=== PATIENT | female | born 1990 | race Caucasian/White ===

== ENCOUNTER → 2021-09-22 09:51 | Outpatient (CLI) | payer OTHER, SELFPAY ==
[2021-09-22 12:04] LABS: Add Manual Diff / Slide Review NO; Basophils Absolute Auto 0 /uL (0-100); Basophils Percent Auto 0.2 % (0-2); Eosinophils Absolute Auto 200 /uL (0-450); Eosinophils Percent Auto 1.7 % (2-4); Hematocrit 39.3 % (36-46); Hemoglobin 13.7 g/dL (12.0-16.0); Lymphocytes Absolute Auto 2000 /uL (1100-4500); Lymphocytes Percent Auto 21.4 % (25-40); Mean Corpuscular HGB Conc 34.9 % (30-36); Mean Corpuscular Hemoglobin 31.5 PG (26-34); Mean Corpuscular Volume 90.3 fL (80-100); Monocytes Absolute Auto 500 /uL (0-900); Monocytes Percent Auto 5.4 % (3-14); Neutrophils Absolute Auto 6700 /uL (1500-7000); Neutrophils Percent Auto 71.3 % (50-75); Platelet Count 189 X10^3/uL (150-400); Red Blood Cell Count 4.36 X10^6/uL (4.0-5.2); Red Cell Distribution Width 13.9 % (11.6-14.8); White Blood Cell Count 9.3 X10^3/uL (4.5-11.0)
[2021-09-22 12:35] LABS: Appearance Urine UA CLEAR; Bilirubin Urine UA NEGATIVE (NEGATIVE); Color Urine UA YELLOW; Glucose Urine UA NEGATIVE (Negative); Ketones Urine UA NEGATIVE (NEGATIVE); Leukocyte Esterase Urine UA NEGATIVE (NEGATIVE); Nitrite Urine UA NEGATIVE (Negative); Occult Blood Urine UA NEGATIVE (Negative); Protein Urine UA NEGATIVE (Negative); Specific Gravity Urine UA <=1.005 (1.000-1.035); Urobilinogen Urine UA 0.2 E.U./dL (0.2)
[2021-09-22 16:54] LABS: Hepatitis B Surface Antigen NEGATIVE s/c (NEGATIVE)
[2021-09-22 17:10] LABS: Hep C Virus Ab w/Reflex Quant NEGATIVE s/c (NEGATIVE)
[2021-09-22 17:16] LABS: HIV 1 & 2 Ab/Ag 4th Gen Combo NEGATIVE (NEGATIVE)
[2021-09-23 07:39] LABS: RPR Screen Non Reactive (Non Reactive)
[2021-09-23 10:42] LABS: Varicella IgG Antibody 2053 index (Immune >165)
== END ==
PROVIDERS: Referring Provider Obstetrics & Gynecology; Visit Provider Obstetrics & Gynecology
DX: Z34.81 Encounter for supervision of other normal pregnancy, first trimester (principal)
CPT/HCPCS: 36415; 80055; 81003; 86787; 86803; 86850; 86900; 86901; 87086; 87389

== ENCOUNTER → 2021-10-14 14:37 | Outpatient (ROUT) | payer OTHER, SELFPAY ==
[2021-10-14 16:29] LABS: Urine N gonorrhoeae NOT DETECTED
[2021-10-14 16:42] LABS: Urine Chlamydia NOT DETECTED
== END ==
PROVIDERS: Visit Provider Obstetrics & Gynecology
DX: Z34.81 Encounter for supervision of other normal pregnancy, first trimester (principal); Z3A.13 13 weeks gestation of pregnancy
CPT/HCPCS: 87491; 87591

== ENCOUNTER → 2021-11-27 09:59 | Outpatient (CLI) | payer OTHER, MEDICAID, SELFPAY ==
[2021-11-30 13:34] LABS: AFP Value 58.1 ng/mL (.); Gest Age on Col Date 19.9 weeks (.); Insulin Dep Diabetes No (.); OSBR Risk 1IN 10000 (.); Results Report (.); Test Results *Screen Negative* (.)
== END ==
PROVIDERS: Referring Provider Obstetrics & Gynecology; Visit Provider Obstetrics & Gynecology
DX: Z34.82 Encounter for supervision of other normal pregnancy, second trimester (principal); Z3A.17 17 weeks gestation of pregnancy
CPT/HCPCS: 36415; 82105

== ENCOUNTER → 2021-12-14 12:29 | Outpatient (CLI) | payer OTHER, MEDICAID, SELFPAY ==
--- NOTE | 2021-12-14 12:30 | DI.US.S_ITS ---
PROCEDURE: US OB >= 14 WEEKS FETUS INDICATIONS: ANATOMY OUTSIDE/PRIOR DATING DATA: Last menstrual period (LMP): July 11, 2021. LMP-based estimated date of delivery (REX): April 17, 2022. First dating scan (date and location): September 18, 2021. Estimated date of delivery (REX) from first dating scan: April 22, 2022. TECHNIQUE: Real-time scanning was performed of the fetus, with image documentation and biometric measurements. COMPARISON: None. FINDINGS: General: A single living intrauterine gestation is present. Presentation: Breech. Placenta: Placental position is fundal , without previa. Amniotic fluid index: 12.1 cm, normal range is 5-24 cm. Single deepest vertical pocket is 4.3 cm. heart rate: 145 beats per minute. Maternal cervical canal: 4.9 cm long. Normal lower limit is 2.5 cm. There is a right anterior lower uterine segment uterine fibroid which measures 5.3 x 3.8 x 5.4 cm. biometrics: Biparietal diameter: 5.4 cm, 22 weeks, 2 days Head circumference: 20.2 cm, 22 weeks, 2 days Abdominal circumference: 18.5 cm, 23 weeks, 2 days Femur length: 3.8 cm, 22 weeks, 1 day Clinically estimated gestational age: 21 weeks, 4 days Composite gestational age from present scan: 22 weeks, 4 days Estimated weight and percentile: 529 g, 94% Anatomic survey: Neuro: Ventricles are non-dilated at less than 10 mm. Cisterna magna is normal at 3-11 mm. Cerebellum is normal in size and morphology. Nuchal skin fold: Normal at less than 6 mm between 14-21 weeks gestational age. Face: Nose and lips, facial profile are normal. Spine: No evidence for spina bifida. Heart: 4-chambered heart is present, with normal ventricular outflow tracts. Diaphragm: Diaphragm is intact. Stomach: Left-sided stomach is present. Kidneys: No hydronephrosis. Normal is less than 5 mm in 2nd trimester, less than 7 mm in 3rd trimester. Cord: 3-vessel cord has orthotopic insertion. Bladder: Normal in size. Extremities: All 4 extremities identified. IMPRESSION: 1. Single live intrauterine gestation with a composite gestational age of 22 weeks, 4 days which is concordant with dates by initial scan. 2. Estimated weight percentile 94%. Developing macrosomia should be considered in the differential diagnosis. 3. No sonographic anatomic abnormalities. We strive to produce accurate, complete, and clear reports of imaging services. To assist us in improving patient care, this report was composed using standard report templates and voice recognition software. Therefore, it may contain abnormal punctuation, insertions and/or omissions. Occasional wrong-word or sound-alike substitutions may occur. Though we review the report and make efforts to correct it, we do recommend that the report be read carefully in proper context to recognize any text inaccuracies. Dictated by: Kristi Thompson M.D. on 12/14/2021 at 16:14 Approved by: Kristi Thompson M.D. on 12/14/2021 at 16:18
== END ==
PROVIDERS: Referring Provider Obstetrics & Gynecology; Visit Provider Obstetrics & Gynecology
DX: Z34.82 Encounter for supervision of other normal pregnancy, second trimester (principal); Z3A.22 22 weeks gestation of pregnancy
CPT/HCPCS: 76811

== ENCOUNTER → 2022-01-18 13:44 | Outpatient (CLI) | payer OTHER, MEDICAID, SELFPAY ==
[2022-01-18 15:01] LABS: Hematocrit 36.2 % (36-46); Hemoglobin 12.1 g/dL (12.0-16.0)
== END ==
PROVIDERS: Referring Provider Obstetrics & Gynecology; Visit Provider Obstetrics & Gynecology
DX: O26.899 Other specified pregnancy related conditions, unspecified trimester (principal); Z3A.26 26 weeks gestation of pregnancy; Z67.91 Unspecified blood type, Rh negative
CPT/HCPCS: 36415; 82105; 85014; 85018

== ENCOUNTER → 2022-01-22 14:48 | Outpatient (CLI) | payer OTHER, MEDICAID, SELFPAY | PROVIDERS: Referring Provider Obstetrics & Gynecology; Visit Provider Obstetrics & Gynecology | DX: O26.899 Other specified pregnancy related conditions, unspecified trimester (principal); Z3A.27 27 weeks gestation of pregnancy; Z67.91 Unspecified blood type, Rh negative | CPT/HCPCS: 36415; 86850 ==

== ENCOUNTER → 2022-03-25 15:43 | Outpatient (CLI) | payer OTHER, MEDICAID, SELFPAY ==
[2022-03-26 17:28] LABS: Strep Grp B PCR NEG for Grp B Strep
== END ==
PROVIDERS: Visit Provider Obstetrics & Gynecology
DX: Z34.83 Encounter for supervision of other normal pregnancy, third trimester (principal); Z3A.36 36 weeks gestation of pregnancy
CPT/HCPCS: 87653

== ENCOUNTER 2022-04-08 05:39 | Inpatient (IN) | payer OTHER, MEDICAID, SELFPAY ==
[2022-04-08] MEDS: LACTATED RINGERS 1,000 ML 999 ML IV (06:24)
[2022-04-08 06:25] VITALS: BP 104/60
[2022-04-08 06:36] LABS: Add Manual Diff / Slide Review NO; Basophils Absolute Auto 0 /uL (0-100); Basophils Percent Auto 0.2 % (0-2); Eosinophils Absolute Auto 100 /uL (0-450); Eosinophils Percent Auto 0.9 % (2-4); Hemoglobin 12.8 g/dL (12.0-16.0); Lymphocytes Absolute Auto 1900 /uL (1100-4500); Lymphocytes Percent Auto 19.3 % (25-40); Mean Corpuscular HGB Conc 33.8 % (30-36); Mean Corpuscular Volume 94.6 fL (80-100); Monocytes Absolute Auto 700 /uL (0-900); Monocytes Percent Auto 7.2 % (3-14); Neutrophils Absolute Auto 7300 /uL (1500-7000); Neutrophils Percent Auto 72.4 % (50-75); Platelet Count 138 X10^3/uL (150-400); Red Blood Cell Count 4.02 X10^6/uL (4.0-5.2); White Blood Cell Count 10.1 X10^3/uL (4.5-11.0)
[2022-04-08] MEDS: CITRIC ACID/SODIUM CITRATE 15 ML SOLUTION 30 ML PO (07:06)
[2022-04-08] MEDS: LACTATED RINGERS 1,000 ML 42 ML IV (07:34)
[2022-04-08 07:35] LABS: COVID19 -Nasal RAPID Negative (Negative)
--- NOTE | 2022-04-08 07:53 | PM.OBHP.IH.1 ---
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 Estimated Delivery Date Method Current WG Current Estimate 04/17/22 LMP (Certain) 38w 5d Other Estimates 04/22/22 Ultrasound #1 38w 0d Estimated Gestational Age (weeks): 39 : 2 care: good care, initiated at week # (9), number of visits (11) and pounds weight gain (41) Dating criteria OB: LMP confirmed by 1st trimester US Ultrasounds: normal 1st trimester US and normal mid trimester US Obstetrical complications: none Medical complications OB: none Indications Operative indications ( section): previous uterine surgery Preadmission Labs Last OB Lab Results: Blood Type A Negative 09/22/21 10:27 Antibody Screen Negative 01/22/22 15:00 Hematocrit 38.0 % (36-46) 04/08/22 06:18 Hemoglobin 12.8 g/dL (12.0-16.0) 04/08/22 06:18 Hepatitis B Surface Antigen Negative s/c (NEGATIVE) 09/22/21 10:27 Hepatitis C Antibody Negative s/c (NEGATIVE) 09/22/21 10:27 Rubella Antibody 65.0 IU/mL (>15) 09/22/21 10:27 Varicella-Zoster IgG Antibody 2053 index (Immune >165) 09/22/21 10:27 Group B Streptococcus (PCR) Neg for grp b strep 03/25/22 15:43 -: Chlamydia screen: negative, Gonorrhea screen: negative and Urine: negative -: PAP smear: Normal Genetic Screens: Cell-free DNA: Normal (normal female) and Alpha-fetoprotein: Normal External Labs -: Urine: negative Prior (ies) Past Pregnancies Del. Date GA/Weeks Labor Lgth Wt Sex Route Outcome Anesthesia Place Delv Breastfeed Preg Comp Name 06/29/20 38 48 6 lb 14 oz Male live - full term [facility], [place] Still as of 09/01 pre-eclampsia other Peter Delivery Date: 06/29/20 Last Updated by: Prisca Wise, RN anemia, tachycardia, SOB (worked up by cards and cleared) Evaluation Evaluation Baseline heart rate: 135 Variability: Moderate (11-25) monitor accelerations: Present Monitor Decelerations: Absent Contraction Frequency (minutes): 0 PFSH Medical History (Updated 02/05/22 @ 15:52 by Salud Borges MD) Carpal tunnel syndrome Chronic right hip pain Nonalcoholic fatty liver disease Seasonal allergies Shingles Vaginismus Surgical History (Updated 10/12/21 @ 05:29 by Salud Borges MD) H/O tympanostomy Previous section Family History (Updated 09/01/21 @ 09:40 by Prisca Wise RN) Family/Other Hyperthyroidism Mother Anxiety Hypertension Grandmother Uterine cancer Father Hyperlipidemia Grandmother Bipolar 1 disorder Family/Other Bipolar 1 disorder Grandmother Diabetes mellitus Grandfather Alcoholism Liver failure Social History marital status: number of children: 1 household members: spouse, family (MIL and FELISA) and children lives independently: Yes housing: house pets and animals: Yes (1 dog, livestock) education level: college ([employer] Degree) occupational status: employed current occupational exposures/hazards: No 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 history: 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, 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: No travel history: over 6 months ago seatbelt use: always helmet use: Yes water heater temp set < 120 deg: Yes working smoke detector in home: Yes fire extinguisher in home: Yes carbon monox detector in home: Yes firearms in home: Yes firearms unloaded and locked: Yes do you feel safe at home: Yes Smoking Status: Never smoker second hand exposure: No alcohol intake: former substance use type: does not use during the past year weight has: remained stable well-balanced diet: daily or most days daily servings fruits/ve or more times/day caffeine: Yes Type(s) of exercise: walking and other (active during the day) frequency: 5-6 times per week Meds Home Medications and Allergies Home Medications Medication Instructions Recorded Confirmed Type albuterol 90 mcg/actuation aerosol mcg inhalation Q6H PRN asthma 09/01/21 04/02/22 History inhaler cetirizine 10 mg capsule (Zyrtec) 10 mg PO DAILY PRN Allergies 09/01/21 04/08/22 History prenat.vits,jose manuel,vqp-fnnr-[id number] 1 tab PO DAILY 09/01/21 04/08/22 History triamcinolone acetonide 55 mcg 2 spray intranasal DAILY PRN 09/01/21 04/08/22 History nasal spray aerosol allergic symptoms double electric breast pump 1 ea topical .prn #1 ea 03/17/22 04/08/22 Rx Allergies Allergy/AdvReac Type Severity Reaction Status Date / Time No Known Allergies Allergy Verified 04/02/22 10:25 OB Exam Narrative Exam Narrative: Generally: Patient is sitting up in bed, no acute distress Lungs: Clear to auscultation bilaterally Cardiovascular: Regular rate and rhythm Fundal height: 39 cm Estimated weight: 7-1/2 lb Extremities: Trace edema Objective Labs 04/08/22 06:18 Labs: Laboratory Results - last 24 hr 04/08/22 04/08/22 06:13 06:18 WBC 10.1 RBC 4.02 Hgb 12.8 Hct 38.0 MCV 94.6 MCH 32.0 MCHC 33.8 RDW 14.0 Plt Count 138 L Neut % (Auto) 72.4 Lymph % (Auto) 19.3 L [place] % (Auto) 7.2 Eos % (Auto) 0.9 L Baso % (Auto) 0.2 Neut # (Auto) 7300 H Lymph # (Auto) 1900 [place] # (Auto) 700 Eos # (Auto) 100 Baso # (Auto) 0 SARS-CoV-2 (PCR) Negative Assessment and Plan Assessment and Plan Assessment and Plan narrative: Assessment: 31-year-old 2 para 1 at an estimated gestational age of 39 weeks gestation with a previous section Plan: Repeat low-transverse section Full preoperative exam done in the office on April 02, 2022 Time Spent with Patient Total time spent with greater than 50% in coordination of care (as documented) at patient's floor/unit and/or counseling patient:: 15-24 minutes
--- NOTE | 2022-04-08 07:58 | PM.PREOP ---
Pre-operative Note COVID-19 COVID-19 status: Negative Result date/Date tested (Pos, Neg/Pending): 04/08/22 Criteria for continued procedure: Non-surgical alternatives not available or appropriate per current SOC Interval Note History & Physical reviewed/Exam performed by Physician: Yes Changes to H&P: No H&P completed within 30 days and has changed as indicated here:: 04/08/22
[2022-04-08] MEDS: CEFAZOLIN 2 GM/100 ML PREMIX 100 ML IV (08:15)
--- NOTE | 2022-04-08 08:19 | SUR.OPER ---
Supine on Padded OR bed, head on pillow, safety belt at thigh, arms secured on padded arm boards at <90 degrees abduction. Bump under right buttock. Legs uncrossed with pillow under knees, gel pad to heels, tape over blanket to lower legs.
--- NOTE | 2022-04-08 08:45 | SUR.OPER ---
Baby girl Yumen born at 0834. Placenta delivered at 0836. Placenta and cord blood sent with L&D RN.
[2022-04-08 09:12] VITALS: BP 110/68; PULSE 71; RESP 11; TEMP 36.1; O2SAT 96
--- NOTE | 2022-04-08 09:17 | PM.OBCS.1 ---
Operative Date/Time/Diagnoses Date of procedure: 04/08/22 Time of procedure: 09:17 Pre-op diagnosis: Previous C section EGA 39 weeks Post-op diagnosis: same Procedure & Clinicians Procedure: Repeat Low transverse C section Same procedure as scheduled: Yes Indications: Previous section Estimated gestational age of 39 weeks Surgeon: Salud Avila Yes if Unassisted: No Procurement Consultant: Gerhard Gómez Anesthesia Type: Spinal (With Duramorph) Operative Notes Findings: Live female in ANGELY presentation Fascial adhesions Normal tubes and ovaries 6 cm mid body of the uterus subserosal fibroid Closure Type: primary Specimen(s): cord blood and placenta Intraoperative meds administered: Duramorph, Ketorolac and Pitocin Applied: Catheter (To continuous drainage) Estimated Blood Loss (mL): 200 Blood products transfused: none Procedure in detail: The patient was taken to the operating room where she was placed in the seated position. Spinal anesthesia with Duramorph was administered. The patient was then placed in the dorsal supine position with a leftward tilt. She was prepped and draped in the usual sterile fashion. A timeout was performed. After spinal analgesia was found to be adequate, a Pfannenstiel skin incision was made through the previous incision and carried through to the underlying layer fascia. The fascia was nicked in the midline, and the incision extended bilaterally with the Mckenna scissors. The superior aspect of the fascial incision was grasped with a Abbe clamps, elevated, and the underlying rectus muscles dissected off sharply and bluntly. Attention was then turned to the inferior aspect of this incision which in a similar fashion was grasped with a Abbe clamps, elevated, and the underlying rectus muscles dissected off sharply and bluntly. The rectus muscles were in the midline. The peritoneum was identified, grasped between 2 hemostats, and entered sharply with the Metzenbaum scissors. This incision was extended superiorly and inferiorly with good visualization of the bladder. The bladder blade was inserted. The vesicouterine peritoneum was identified, grasped with the pickup, and entered sharply with the Metzenbaum scissors. This incision was extended bilaterally, and the bladder flap was created digitally. The bladder blade was reinserted. The lower uterine segment was incised in a transverse fashion with the scalpel. Upon entering the amniotic sac there was moderate amount of clear amniotic fluid. The infant's head was delivered without difficulty. The nose and mouth were suctioned with bulb suction. The remainder of the body delivered without difficulty. The cord was double clamped and cut. The was handed off to waiting RN and RT. The placenta was delivered manually. The uterus was cleared of all clots and debris. The uterine incision was repaired with #1 chromic in a running interlocking fashion, and a second layer the same suture was used for an imbricating layer. Hemostasis was achieved. The tubes and ovaries were examined and were found to be normal. The gutters were cleared of all clots and debris. The bladder flap was reapproximated using 2-0 Vicryl in a running fashion. The parietal peritoneum was closed using 2-0 Vicryl in a running fashion. The fascia was reapproximated using 0 Vicryl in a running fashion. The subcutaneous layer was copiously irrigated with warm normal saline. 5 simple interrupted sutures of 3-0 Vicryl were placed to reapproximate the subcutaneous layer. The skin was closed with 4-0 Monocryl in a subcuticular fashion. Steri-Strips were placed. An Aquacel dressing was placed. The uterus was expressed of a small amount of old blood. Sponge, lap, and instrument counts were correct x-2. The patient tolerated the procedure well, and was taken to PACU in stable condition. Complications: none [place] Baby 1: Gender: Female Presentation: vertex Position: Right Occiput Anterior Placental Delivery Description: Expressed Cord Vessel Description: 3 Vessels and Clamped/Cut (After 1 minute) score (1 min): 8 score (5 min): 9 weight: 7 lb 15 oz Post-operative Condition: stable Disposition: PACU Aftercare: routine postop
[2022-04-08 09:18] VITALS: BP 117/74; PULSE 80; RESP 14; O2SAT 96
[2022-04-08 09:22] VITALS: BP 108/68; PULSE 77; RESP 14; O2SAT 95
[2022-04-08] MEDS: LANOLIN OINT 7 GM 1 APPLIC TOP (11:25)
[2022-04-08] MEDS: ACETAMINOPHEN 325 MG TABLET 650 MG PO ×3 (11:25→23:29)
[2022-04-08] MEDS: KETOROLAC 30 MG/ML VIAL IV ×2 (15:10→21:15)
[2022-04-09] MEDS: KETOROLAC 30 MG/ML VIAL IV (03:27)
[2022-04-09] MEDS: ACETAMINOPHEN 325 MG TABLET 650 MG PO ×2 (05:20→12:46)
[2022-04-09 05:51] LABS: Add Manual Diff / Slide Review NO; Basophils Absolute Auto 0 /uL (0-100); Basophils Percent Auto 0.3 % (0-2); Eosinophils Absolute Auto 100 /uL (0-450); Eosinophils Percent Auto 0.5 % (2-4); Hematocrit 33.4 % (36-46); Hemoglobin 11.3 g/dL (12.0-16.0); Lymphocytes Absolute Auto 2600 /uL (1100-4500); Lymphocytes Percent Auto 18.7 % (25-40); Mean Corpuscular HGB Conc 33.9 % (30-36); Mean Corpuscular Hemoglobin 31.7 PG (26-34); Mean Corpuscular Volume 93.4 fL (80-100); Monocytes Absolute Auto 900 /uL (0-900); Monocytes Percent Auto 6.7 % (3-14); Neutrophils Absolute Auto 10400 /uL (1500-7000); Neutrophils Percent Auto 73.8 % (50-75); Platelet Count 125 X10^3/uL (150-400); Red Blood Cell Count 3.57 X10^6/uL (4.0-5.2); Red Cell Distribution Width 13.9 % (11.6-14.8); White Blood Cell Count 14.1 X10^3/uL (4.5-11.0)
[2022-04-09] MEDS: PRENATAL VIT,CALC/IRON/FOLIC 1 TABLET 1 TAB PO (09:38)
[2022-04-09] MEDS: IBUPROFEN 600 MG TABLET PO (09:39)
[2022-04-09] MEDS: RHO(D) IMMUNE GLOBULIN 1,500 UNIT SYRINGE 1500 UNIT IM (09:39)
[2022-04-09] MEDS: DOCUSATE 100 MG CAPSULE PO (09:41)
[2022-04-09 10:03] VITALS: BP 109/72; PULSE 72; RESP 16; TEMP 36.5
[2022-04-09] MEDS: OXYCODONE IR 5 MG TABLET PO (12:46)
== END 2022-04-09 13:15 | disposition home or self-care (01) | DRG 788 ==
PROVIDERS: Admitting Provider Obstetrics & Gynecology; Referring Provider Obstetrics & Gynecology; Visit Provider Obstetrics & Gynecology
PROC: 10D00Z1 Extraction of Products of Conception, Low, Open Approach (ICD-10-PCS; CPT 59514; principal; 2022-04-08 07:45)
DX: O34.211 Maternal care for low transverse scar from previous cesarean delivery (principal); Z3A.39 39 weeks gestation of pregnancy; Z37.0 Single live birth; Z67.11 Type A blood, Rh negative; D25.2 Subserosal leiomyoma of uterus; O34.13 Maternal care for benign tumor of corpus uteri, third trimester; Z20.822 Contact with and (suspected) exposure to COVID-19
CPT/HCPCS: 36415; 59050; 59510; 59514; 85025; 85461; 86850; 86870; 86900; 86901; 87635; C9803; J0690; J1100; J1885; J2274; J2405; J2590; J2790; J3010

== ENCOUNTER 2022-05-02 11:56 | Emergency (ER) | payer OTHER, MEDICAID, SELFPAY ==
[2022-05-02 11:59] VITALS: BP 133/90; PULSE 70; RESP 18; TEMP 36.6; O2SAT 99
--- NOTE | 2022-05-02 12:54 | ED_ITS ---
HPI - Skin/Abscess/Foreign Bdy <Diamond Burns, [facility] - Last Filed: 05/02/22 13:50> General Chief complaint: Skin/Abscess/Foreign Body Stated complaint: Csection is bleeding and purulent, 04/08 Time Seen by Provider: 05/02/22 12:09 Source: patient Mode of arrival: Ambulatory Limitations: no limitations History of Present Illness HPI narrative: This is a 31-year-old female who is 3 weeks status post delivery a healthy and presents with concern about her site. She states that she has some discharge present from this yesterday after she cleaned it in the shower. States that her pannus is causing the tissue to fold right where her line is and her skin has been moist. She states that she thought she saw some pus or some white discharge come from the wound. She denies fever, chills, abdominal pain, has not had intercourse yet, endorses that she has been picking up her 20 lb toddler but has not had any increased pain, denies any pain anywhere and states that there is a couple spots of erythema across her scar. She denies any separation of wound tissue and denies any problems healing after her surgery. She also denies any deep abdominal tenderness. Denies any abnormal vaginal discharge, urinary frequency or urgency, nausea vomiting or new systemic symptoms. Related Data Home Medications Medication Instructions Recorded Confirmed albuterol 90 mcg/actuation aerosol inhalation PRN Dyspnea 09/01/21 04/02/22 inhaler cetirizine 10 mg capsule (Zyrtec) 10 mg PO DAILY PRN Allergies 09/01/21 04/08/22 prenat.vits,jose manuel,[id number] 1 tab PO DAILY 09/01/21 04/08/22 triamcinolone acetonide 55 mcg 2 spray intranasal DAILY PRN 09/01/21 04/08/22 nasal spray aerosol allergic symptoms Previous Rx's Medication Instructions Recorded double electric breast pump 1 ea topical .prn #1 ea 03/17/22 oxycodone 5 mg tablet 5 mg PO Q6H PRN pain #20 tabs 04/09/22 mupirocin 2 % topical ointment 1 applic topical DAILY #22 grams 05/02/22 nystatin 100,000 unit/gram topical 1 applic topical BID #60 grams 05/02/22 powder Allergies Allergy/AdvReac Type Severity Reaction Status Date / Time No Known Allergies Allergy Verified 04/02/22 10:25 Review of Systems <LUDY Pate - Last Filed: 05/02/22 13:50> Review of Systems ROS Unobtainable: All systems reviewed & are unremarkable except as noted in HPI and below Patient History <LUDY Pate - Last Filed: 05/02/22 13:50> Medical History Carpal tunnel syndrome Chronic right hip pain Nonalcoholic fatty liver disease Seasonal allergies Shingles Vaginismus Surgical History H/O tympanostomy Previous section Family History Family/Other Hyperthyroidism Mother Anxiety Hypertension Grandmother Uterine cancer Father Hyperlipidemia Grandmother Bipolar 1 disorder Family/Other Bipolar 1 disorder Grandmother Diabetes mellitus Grandfather Alcoholism Liver failure Social History marital status: number of children: 1 household members: spouse, family (MIL and FELISA) and children lives independently: Yes housing: house pets and animals: Yes (1 dog, livestock) education level: college ([employer] Degree) occupational status: employed current occupational exposures/hazards: No 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 history: 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, 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: No travel history: over 6 months ago seatbelt use: always helmet use: Yes water heater temp set < 120 deg: Yes working smoke detector in home: Yes fire extinguisher in home: Yes carbon monox detector in home: Yes firearms in home: Yes firearms unloaded and locked: Yes do you feel safe at home: Yes Smoking Status: Never smoker second hand exposure: No alcohol intake: former substance use type: does not use during the past year weight has: remained stable well-balanced diet: daily or most days daily servings fruits/ve or more times/day caffeine: Yes Type(s) of exercise: walking and other (active during the day) frequency: 5-6 times per week Smoking Status: Never smoker alcohol intake frequency: 0-2 drinks per day Substance Use Type: does not use Exam <LUDY Pate - Last Filed: 05/02/22 13:50> Narrative Exam Narrative: Reviewed vitals signs and nursing notes. General: cooperative, comfortable, in no acute distress, well groomed HEENT: symmetrical facial expressions, moist mucous membranes GI: abdomen soft, nontender to palpation, nondistended, abdomen is without masses tenderness, or area concerning for abscess. There is no tenderness along the incision, her pannus does over hang the incision and wound base is mildly moist. Two areas of erythema above and below the incision likely from skin rubbing on it self or moisture with the skin touching. There is no fluctuance, dehiscence or discharge from the wound. MSK: moves all extremities, neurovascularly intact, no weakness, normal tone Skin: brisk capillary refill, without pallor or erythema Neuro: normal speech and cognition, A&O x3, ambulatory, clear speech Psych: mental status is grossly normal, congruent mood, normal affect, pleasant and cooperative Initial Vital Signs Initial Vital Signs: Vital Signs Temperature 97.9 F 05/02/22 11:59 Pulse Rate 70 05/02/22 11:59 Respiratory Rate 18 05/02/22 11:59 Blood Pressure 133/90 05/02/22 11:59 Pulse Oximetry 99 05/02/22 11:59 Oxygen Delivery Method 05/02/22 11:59 <Marlen Umana DO - Last Filed: 05/11/22 03:15> Initial Vital Signs Initial Vital Signs: Vital Signs Temperature 97.9 F 05/02/22 11:59 Pulse Rate 70 05/02/22 11:59 Respiratory Rate 18 05/02/22 11:59 Blood Pressure 133/90 05/02/22 11:59 Pulse Oximetry 99 05/02/22 11:59 Oxygen Delivery Method 05/02/22 11:59 Course <LUDY Pate - Last Filed: 05/02/22 13:50> Orders Ordered: ED Orders 05/02/22 12:45 Urine Microscopic Stat 05/02/22 12:48 Urine Culture Stat Vital Signs Vital signs: Vital Signs - 8 hr 05/02/22 11:59 Temperature 97.9 F Pulse Rate 70 Respiratory Rate 18 Blood Pressure 133/90 Pulse Oximetry 99 Oxygen Delivery Method Room Air <Marlen Umana DO - Last Filed: 05/11/22 03:15> Orders Ordered: ED Orders 05/02/22 12:45 Urine Microscopic Stat 05/02/22 12:48 Urine Culture Stat Vital Signs Vital signs: Vital Signs - 8 hr 05/02/22 11:59 Temperature 97.9 F Pulse Rate 70 Respiratory Rate 18 Blood Pressure 133/90 Pulse Oximetry 99 Oxygen Delivery Method Room Air MDM - Skin/Abscess/Foreign Bdy <LUDY Pate - Last Filed: 05/02/22 13:50> Lab Data Labs: Lab Results 05/02/22 Range/Units 12:45 Urine RBC None seen (0-5/HPF) Urine WBC None seen (0-5/HPF) Urine Bacteria None seen (None) Micro UA Comment Microscopic normal Urine Dip Bedside Urine Bilirubin - Negative Bedside Urine Ketone - Negative Urine Specific [place] 1.015 Bedside Urine Occult Blood - Negative Bedside Urine pH 6 Bedside Urine Protein - Negative Bedside Urine Urobilinogen - Negative Bedside Urine Nitrite - Negative Bedside Urine Leukocytes - Negative Esterase MDM Narrative Medical decision making narrative: Chief Complaint: Wound complication Independent historian: patient Differential diagnoses include but are not limited to: Wound dehiscence, wound infection, abscess, tunneling wound, fungal infection, bacterial infection, contact dermatitis I have independently reviewed the patient's vital signs and nursing notes as well as prior records if available, and used shared decision making to develop plan care with patient. Plan: Wound appears well healed with good wound approximation and without concern for dehiscence or deep wound infection. She is nontender, very superficial areas of erythema likely related to moisture and intertrigo. Prescribed for her nystatin powder, encouraged her to fully dried the area after cleansing, apply the powder and I gave her Telfa dressings, paper tape, and ABD pads to absorb moisture in this area and to maximize airflow to this region. Prescribed also mupirocin ointment for superimposed bacterial infection if this happens, her UA is negative for bacteria, WBCs or RBCs. Prescribed for her cephalexin q.i.d. for skin infection any worsening of this over the next 1-2 days, she understands to come back to the emergency department if she has discharge coming from the wound, pain or fever chills. She is going to schedule follow-up with Dr. Borges since she did not have her 1 week post follow-up. Patient's symptoms improved over duration of stay with above-stated therapies. Social considerations that may affect disposition: none Questions are addressed and there is agreement with the plan and for follow-up. Patient is appropriate for outpatient management. MIPS: This encounter doesn't have any diagnosis' associated with MIPS criteria. <Marlen Umana, DO - Last Filed: 05/11/22 03:15> Lab Data Labs: Lab Results 05/02/22 Range/Units 12:45 Urine RBC None seen (0-5/HPF) Urine WBC None seen (0-5/HPF) Urine Bacteria None seen (None) Micro UA Comment Microscopic normal Urine Dip Bedside Urine Bilirubin - Negative Bedside Urine Ketone - Negative Urine Specific [place] 1.015 Bedside Urine Occult Blood - Negative Bedside Urine pH 6 Bedside Urine Protein - Negative Bedside Urine Urobilinogen - Negative Bedside Urine Nitrite - Negative Bedside Urine Leukocytes - Negative Esterase Discharge Plan Departure Patient Disposition: Home Clinical Impression: section wound complication, Intertriginous dermatitis associated with moisture Instructions: DI for Wound Infection Activity Restrictions/Additional Instructions: *You have been diagnosed with wound complication however it does not look deep ly infected or coming from a tunneling abscess today. This is likely related to moisture and I encourage you to thoroughly dry this after ring apply the nystatin powder and an absorbent nonstick dressing. If this clears it up, great, if it does not, please use topical mupirocin ointment of and continue with an absorbent dressing. If this has worsening, please start the antibiotic, if you develop a fever, chills, worsening pain, please come back to the emergency department. Thank you for trusting us with your care, I hope you feel better soon. No evidence of bladder infection today so follow up with Dr. Borges. *What to do: *Please continue to take your regular medications as directed. [x ] New medication prescriptions sent to your pharmacy: [ [facility]] [ ] New medication written as a paper prescription [ ] No new medications given *Please follow up with your primary care provider in 2-3 days, call for an appointment. Let them know you were seen in the Emergency Department and that we asked that you be seen for follow-up. We will electronically transmit a record of today's note if your PCP is in our system *If you do not have a primary care provider please contact [phone] to establish care with one of the [facility] primary care providers. *Return to Emergency Department if you should have any new, worsening, or concerning symptoms, such as [fever greater than 101F, chills, worsening pain, persistent vomiting or other bothersome symptoms]. Prescriptions: New nystatin 100,000 unit/gram powder 1 applic topical BID Qty: 60 0RF mupirocin 2 % ointment 1 applic topical DAILY Qty: 22 0RF No Action double electric breast pump 1 ea topical .prn Qty: 1 0RF Rx Instructions: With supplies prenat.vits,jose manuel,[id number] Tablet 1 tab PO DAILY Zyrtec 10 mg capsule 10 mg PO DAILY PRN (Reason: Allergies) triamcinolone acetonide 55 mcg aerosol,spray 2 spray intranasal DAILY PRN (Reason: allergic symptoms) Rx Instructions: administer into each nostril albuterol 90 mcg/actuation aerosol inhalation PRN (Reason: Dyspnea) oxycodone 5 mg tablet 5 mg PO Q6H PRN (Reason: pain) Qty: 20 0RF Referrals: Salud Borges MD [Physician] - As soon as possible Stand Alone Forms: Patient Portal/API <Marlen Umana DO - Last Filed: 05/11/22 03:15> Cosign ED Attending Coswillisature Attestation: I was immediately available in the department for consultation. Documentation has been reviewed.
[2022-05-02 12:56] LABS: Bacteria Urine None Seen; RBC Urine None Seen (0-5/HPF); Urine Comments Microscopic Normal; WBC Urine None Seen (0-5/HPF)
== END 2022-05-02 13:00 | disposition home or self-care (01) ==
PROVIDERS: Emergency Provider Nurse Practitioner Critical Care Medicine
DX: O90.9 Complication of the puerperium, unspecified (principal); L30.4 Erythema intertrigo
CPT/HCPCS: 81003; 81015; 87086; 99282

== ENCOUNTER 2022-08-23 09:20 | Day surgery (SDC) | payer OTHER, MEDICAID, SELFPAY ==
[2022-08-23 09:41] VITALS: BP 102/67; PULSE 60; RESP 18; TEMP 37.1; O2SAT 100; BMI 30.5
[2022-08-23] MEDS: LACTATED RINGERS 1,000 ML 100 ML IV (10:01)
--- NOTE | 2022-08-23 10:36 | P.HPOB_ITS ---
History of Present Illness History of Present Illness Reason for admission: other (dyspareunia) Narrative: Nisreen Caicedo is a 32 year old female 2 para 2 with dyspareunia and a tight hymen. She presents for hymenotomy. FOR[facility]LY [facility], [facility] Medical History Carpal tunnel syndrome Chronic right hip pain Nonalcoholic fatty liver disease Seasonal allergies Shingles Vaginismus Surgical History H/O tympanostomy Previous section Family History Family/Other Hyperthyroidism Mother Anxiety Hypertension Grandmother Uterine cancer Father Hyperlipidemia Grandmother Bipolar 1 disorder Family/Other Bipolar 1 disorder Grandmother Diabetes mellitus Grandfather Alcoholism Liver failure Social History marital status: number of children: 1 household members: spouse, family and children lives independently: Yes housing: house pets and animals: Yes (1 dog, livestock) education level: college ([employer] Degree) occupational status: employed current occupational exposures/hazards: No 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 history: 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, 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: No travel history: over 6 months ago seatbelt use: always helmet use: Yes water heater temp set < 120 deg: Yes working smoke detector in home: Yes fire extinguisher in home: Yes carbon monox detector in home: Yes firearms in home: Yes firearms unloaded and locked: Yes do you feel safe at home: Yes Smoking Status: Never smoker second hand exposure: No alcohol intake: never substance use type: does not use during the past year weight has: remained stable well-balanced diet: daily or most days daily servings fruits/ve or more times/day caffeine: Yes Type(s) of exercise: walking and other (active during the day) frequency: 5-6 times per week Meds Home Medications and Allergies Home Medications Medication Instructions Recorded Confirmed Type cetirizine 10 mg capsule (Zyrtec) 10 mg PO DAILY PRN Allergies 09/01/21 08/23/22 History prenat.vits,jose manuel,[id number] 1 tab PO DAILY 09/01/21 08/23/22 History triamcinolone acetonide 55 mcg 2 spray intranasal DAILY PRN 09/01/21 08/23/22 History nasal spray aerosol allergic symptoms Allergies Allergy/AdvReac Type Severity Reaction Status Date / Time No Known Allergies Allergy Verified 08/23/22 09:33 Exam Vital Signs (past 8 hours): - 08/23/22 09:41 Temperature 98.8 F Pulse Rate 60 Respiratory Rate 18 Blood Pressure 102/67 Pulse Oximetry 100 Oxygen Delivery Method Room Air Oxygen Delivery Method Room Air Narrative Exam Narrative: HEENT: No thyromegaly, no anterior cervical or supraclavicular lymphadenopathy. Lungs:Clear to auscultation bilaterally, no wheezes. Cardiovascular: Regular rate and rhythm, no murmurs, rubs, or gallops. Abdomen: Well-healed Pfannenstiel scars. No hepatosplenomegaly. No masses palpable. External genitalia: Normal Vagina: Tight hymen Cervix: Normal Bimanual exam: 6 Week size uterus. Mobile. Ext: No edema Assessment & Plan Assessment & Plan narrative: Assessment: 32-year-old 2 para 2 with dyspareunia and a tight hymen Plan: Hymenotomy The risks, benefits, and alternatives to the procedure were explained to the patient. The risks including bleeding and infection. She understands these risks and agrees to proceed. A full par Q was held and consent form was signed. Time Spent With Patient Time with patient: less than 30 minutes
--- NOTE | 2022-08-23 10:39 | PM.PREOP ---
Pre-operative Note COVID-19 Criteria for continued procedure: Non-surgical alternatives not available or appropriate per current SOC Interval Note History & Physical reviewed/Exam performed by Physician: Yes Changes to H&P: No H&P completed within 30 days and has changed as indicated here:: 08/23/22
--- NOTE | 2022-08-23 11:13 | SUR.OPER ---
Lithotomy on padded OR bed, head on pillow, arms secured on padded arm boards at <90 degrees abduction. Legs secured in padded yellow fins stirrups.
--- NOTE | 2022-08-23 11:29 | P.OP_ITS ---
Operative Date/Time/Diagnoses Date of procedure: 08/23/22 Time of procedure: 11:29 Pre-op diagnosis: Dyspareunia Tight hymen Post-op diagnosis: same Procedure & Clinicians Procedure: Procedures Operation Date: 08/23/22 10:45 Actual Procedure Side Surgeon p Hymenectomy Salud Borges MD Indications: Dyspareunia Tight hymen Surgeon: Salud Borges Anesthesia Type: General (LMA) and Local Operative Notes Findings: Very tight hymenal ring Closure Type: primary Specimen(s): none Estimated blood loss (mL): 5 Blood products transfused: none Procedure in detail: After informed consent was obtained, the patient was taken to the operating and was placed in the dorsal supine position. After adequate LMA general anesthesia was achieved, she was placed in the dorsal lithotomy position, and prepped and draped in sterile fashion. A time-out was performed. 6 cc 1% lidocaine with epinephrine were injected from the 5 to 7 o'clock position around the hymenal ring. Two incisions were made 1 at the 5 o'clock position and 1 at the 7 o' clock position. Pressure was held for hemostasis. Longitudinally the area was closed with 3-0 chromic in a running fashion. Hemostasis was achieved. At the beginning of the procedure there was a 2 cm diameter across the hymenal ring, and at the completion of the procedure there was 4 cm across the hymenal ring. Sponge, lap, and instrument counts were correct x2. The patient tolerated the procedure well, and was taken to PACU in stable condition. Complications: none Post-operative Condition: stable Disposition: PACU Plan for aftercare: Home after recovery
[2022-08-23 11:31] VITALS: BP 94/57; PULSE 70; RESP 11; TEMP 36.1; O2SAT 92
[2022-08-23] MEDS: LIDOCAINE 1% 20 ML, EPINEPHrine 0.2 MG INJ (11:32)
[2022-08-23 11:36] VITALS: BP 96/59; PULSE 78; RESP 17; O2SAT 94
[2022-08-23 11:40] VITALS: BP 98/59; PULSE 78; RESP 14; O2SAT 94
[2022-08-23 11:46] VITALS: BP 96/64; PULSE 62; RESP 16; TEMP 36.2; O2SAT 95
== END 2022-08-23 12:21 | disposition home or self-care (01) ==
PROVIDERS: Referring Provider Obstetrics & Gynecology; Visit Provider Obstetrics & Gynecology
PROC: (CPT 56700; principal; 2022-08-23 10:45)
DX: N89.6 Tight hymenal ring (principal); N94.10 Unspecified dyspareunia
CPT/HCPCS: 56700; J0171; J1100; J1885; J2405; J2704; J3010

== ENCOUNTER 2022-10-09 19:58 | Observation (INO) | payer OTHER, MEDICAID, SELFPAY ==
[2022-10-09 20:05] VITALS: BP 110/71; PULSE 64; RESP 16; TEMP 36.3; O2SAT 97; BMI 29.9
[2022-10-09 20:55] LABS: Add Manual Diff / Slide Review NO; Alanine Aminotransferase 17 IU/L (<35); Albumin 4.6 g/dL (3.5-5.0); Albumin Globulin Ratio 1.2 (1.0-2.8); Alkaline Phosphatase 82 U/L (38-126); Aspartate Aminotransferase 23 IU/L (14-36); BUN Creatinine Ratio 16.7 (6-22); Basophils Absolute Auto 0 /uL (0-100); Basophils Percent Auto 0.4 % (0-2); Bilirubin Total 0.3 mg/dL (0.2-1.3); Blood Urea Nitrogen 14 mg/dL (7-17); Carbon Dioxide 29 mmol/L (22-32); Chloride 99 mmol/L (98-107); Eosinophils Absolute Auto 200 /uL (0-450); Eosinophils Percent Auto 2.7 % (2-4); Estimated Glomerular Filt Rate > 60 mL/min (>60); Globulin 3.7 g/dL (1.7-4.1); Glucose 86 mg/dL (70-100); HEMOLYSIS 44 (0-50); Hematocrit 41.9 % (36-46); Hemoglobin 14.5 g/dL (12.0-16.0); Lipase 63 U/L (23-300); Lymphocytes Absolute Auto 3000 /uL (1100-4500); Lymphocytes Percent Auto 35.2 % (25-40); Mean Corpuscular HGB Conc 34.6 % (30-36); Mean Corpuscular Hemoglobin 31.2 PG (26-34); Mean Corpuscular Volume 90.2 fL (80-100); Monocytes Absolute Auto 600 /uL (0-900); Monocytes Percent Auto 6.8 % (3-14); Neutrophils Absolute Auto 4600 /uL (1500-7000); Neutrophils Percent Auto 54.9 % (50-75); Platelet Count 232 X10^3/uL (150-400); Potassium 3.8 mmol/L (3.4-5.1); Red Blood Cell Count 4.65 X10^6/uL (4.0-5.2); Red Cell Distribution Width 12.8 % (11.6-14.8); Sodium 137 mmol/L (137-145); Total Protein 8.3 g/dL (6.3-8.2); White Blood Cell Count 8.5 X10^3/uL (4.5-11.0)
[2022-10-09 22:03] VITALS: BP 105/67; PULSE 56; RESP 14; O2SAT 96
--- NOTE | 2022-10-09 22:23 | ED_ITS ---
HPI - Abdominal Pain General Chief Complaint: Abdominal Pain Stated Complaint: RLQ pain Time Seen by Provider: 10/09/22 22:22 Source: patient Mode of arrival: Ambulatory Limitations: no limitations History of Present Illness HPI narrative: This is a 32-year-old female six-month and cetirizine for daily a llergies. Patient states over the past day she woke up this morning with right lower quadrant pain that is localized just to the front. Does not radiate to her back. Does not really radiate to the other side. She does note there is a little bit discomfort when pushed on the left side over on the right. She states it sort of started more periumbilical and then moved to the right lower quadrant. No fevers or chills. She had some nausea this morning. No vomiting. No diarrhea constipation, she states she is been stooling regularly. No black or bloody stools. No dysuria, urgency or frequency. No vaginal bleeding or discharge. Patient is do not she is not had a menstrual cycle since her delivery 6 months ago. She is . She has not taken anything for pain today she defers anything additional. She she still has her appendix in place. x2 and hymen release are only reported surgeries. No known drug allergies. No tobacco, occasional alcohol, no illicit. Related Data Home Medications Medication Instructions Recorded Confirmed cetirizine 10 mg capsule (Zyrtec) 10 mg PO DAILY PRN Allergies 09/01/21 10/10/22 triamcinolone acetonide 55 mcg 2 spray intranasal DAILY PRN 09/01/21 10/10/22 nasal spray aerosol allergic symptoms Allergies Allergy/AdvReac Type Severity Reaction Status Date / Time No Known Allergies Allergy Verified 09/20/22 13:58 Review of Systems Review of Systems ROS Unobtainable: All systems reviewed & are unremarkable except as noted in HPI and below Patient History Medical History (Updated 10/10/22 @ 00:39 by Saji Lara RN) Asthma Carpal tunnel syndrome Chronic right hip pain Nonalcoholic fatty liver disease Seasonal allergies Shingles Vaginismus Surgical History H/O tympanostomy Previous section Family History Family/Other Hyperthyroidism Mother Anxiety Hypertension Grandmother Uterine cancer Father Hyperlipidemia Grandmother Bipolar 1 disorder Family/Other Bipolar 1 disorder Grandmother Diabetes mellitus Grandfather Alcoholism Liver failure Social History marital status: number of children: 1 household members: spouse, family and children lives independently: Yes housing: house pets and animals: Yes (1 dog, livestock) education level: college ([employer] Degree) occupational status: employed current occupational exposures/hazards: No 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 history: 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, 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: No travel history: over 6 months ago seatbelt use: always helmet use: Yes water heater temp set < 120 deg: Yes working smoke detector in home: Yes fire extinguisher in home: Yes carbon monox detector in home: Yes firearms in home: Yes firearms unloaded and locked: Yes do you feel safe at home: Yes Smoking Status: Never smoker second hand exposure: No alcohol intake: current substance use type: does not use during the past year weight has: remained stable well-balanced diet: daily or most days daily servings fruits/ve or more times/day caffeine: Yes Type(s) of exercise: walking and other (active during the day) frequency: 5-6 times per week Smoking Status: Never smoker alcohol intake frequency: 0-2 drinks per day Substance Use Type: does not use Exam Narrative Exam Narrative: GENERAL: Alert and oriented x three, female in mild distress. HEENT: Head normocephalic, atraumatic, EOMI, pupils reactive, face symmetric, moist mucous membranes NECK: Supple, full range of motion CARDIOVASCULAR: Regular rate and rhythm without murmurs, rubs or gallops. RESPIRATORY: Breath sounds equal bilaterally, no wheezes rales or rhonchi. ABDOMEN: Soft, mild right lower quadrant tenderness. Patient notes that palpation left she has discomfort on the right lower. Also notes rebound on the right lower quadrant. Normoactive bowel sounds all 4 quadrants. No guarding , no rigidity, no mass : No CVA tenderness EXTREMITIES: Normal range of motion, no clubbing or edema. Neurovascularly intact NEUROLOGICAL: Cranial nerves II through XII grossly intact. Moving all extremities SKIN: Warm, dry, no petechiae, no rashes or lesions. Initial Vital Signs Initial Vital Signs: Vital Signs Temperature 97.4 F L 10/09/22 20:05 Pulse Rate 64 10/09/22 20:05 Respiratory Rate 16 10/09/22 20:05 Blood Pressure 110/71 10/09/22 20:05 Pulse Oximetry 97 10/09/22 20:05 Oxygen Delivery Method Room Air 10/09/22 20:05 Course Orders Ordered: ED Orders 10/09/22 20:37 Complete Blood Count AUTO DIFF Stat Comprehensive Metabolic Panel Stat Lipase Stat 10/09/22 22:30 CT abdomen pelvis w con Stat Sodium Chloride (Normal Saline 0.9%) 1,000 mls @ 150 mls/hr IV CONT [facility] Last Admin: 10/09/22 23:50 Dose: 150 mls/hr Documented By: REAL Ondansetron HCl (Ondansetron 4 Mg Odt) 4 mg PO NOW PRN PRN Reason: Nausea And Vomiting Ondansetron HCl (Ondansetron 4 Mg/2 Ml Inj) 4 mg IV NOW PRN PRN Reason: Nausea And Vomiting Discontinued Medications Piperacillin Sod/Tazobactam (Sod 4.5 gm/ Sodium Chloride) 100 mls @ 200 mls/hr IV NOW ONE Stop: 10/09/22 23:41 Last Infusion: 10/10/22 00:45 Dose: 0 mls/hr Documented By: Admin: 10/09/22 23:50 Dose: 200 mls/hr Documented By: REAL Lactated Ringer's (Lactated Ringers) 1,000 mls @ 150 mls/hr IV CONT [facility] Vital Signs Vital signs: Vital Signs - 8 hr 10/09/22 20:05 10/09/22 22:03 Temperature 97.4 F L Pulse Rate 64 56 L Respiratory Rate 16 14 Blood Pressure 110/71 105/67 Pulse Oximetry 97 96 Oxygen Delivery Method Room Air Room Air MDM - Abdominal Pain Lab Data 10/09/22 20:37 10/09/22 20:37 Labs: Lab Results 10/09/22 10/09/22 Range/Units 20:37 20:37 WBC 8.5 (4.5-11.0) X10^3/uL RBC 4.65 (4.0-5.2) X10^6/uL Hgb 14.5 (12.0-16.0) g/dL Hct 41.9 (36-46) % MCV 90.2 (80-100) fL MCH 31.2 (26-34) PG MCHC 34.6 (30-36) % RDW 12.8 (11.6-14.8) % Plt Count 232 (150-400) X10^3/uL Neut % (Auto) 54.9 (50-75) % Lymph % (Auto) 35.2 (25-40) % [place] % (Auto) 6.8 (3-14) % Eos % (Auto) 2.7 (2-4) % Baso % (Auto) 0.4 (0-2) % Neut # (Auto) 4600 (4956-5158) /uL Lymph # (Auto) 3000 (6841-2033) /uL [place] # (Auto) 600 (0-900) /uL Eos # (Auto) 200 (0-450) /uL Baso # (Auto) 0 (0-100) /uL Sodium 137 (137-145) mmol/L Potassium 3.8 (3.4-5.1) mmol/L Chloride 99 (98-107) mmol/L Carbon Dioxide 29 (22-32) mmol/L BUN 14 (7-17) mg/dL Creatinine 0.84 (0.52-1.04) mg/dL Estimated GFR > 60 (>60) mL/min BUN/Creatinine Ratio 16.7 (6-22) Glucose 86 (70-100) mg/dL Calcium 9.0 (8.4-10.2) mg/dL Total Bilirubin 0.3 (0.2-1.3) mg/dL AST 23 (14-36) IU/L ALT 17 (<35) IU/L Alkaline Phosphatase 82 (38-126) U/L Total Protein 8.3 H (6.3-8.2) g/dL Albumin 4.6 (3.5-5.0) g/dL Globulin 3.7 (1.7-4.1) g/dL Albumin/Globulin Ratio 1.2 (1.0-2.8) Lipase 63 (23-300) U/L Point of care testing: Point of Care Testing Test Results Negative Urine Dip Bedside Urine Glucose Negative Bedside Urine Bilirubin - Negative Bedside Urine Ketone - Negative Urine Specific Issue 1.01 Bedside Urine Occult Blood - Negative Bedside Urine pH 7.0 Bedside Urine Protein - Negative Bedside Urine Urobilinogen - Negative Bedside Urine Nitrite - Negative Bedside Urine Leukocytes - Negative Esterase Imaging Data CT scan - abdomen/pelvis: Radiologist's Impression: [address] [address] [address] Scan Report Signed Patient: Nisreen Caicedo MR#: [id number] : 1990 Acct:[id number] Age/Sex: 32 / F Date of Service: 10/09/22 Loc: ED Accession Number: [id number] ?? Procedure: CT abdomen pelvis w con Ordering Provider: Alexandra Way D.O. PROCEDURE:? CT ABDOMEN PELVIS W CON ? INDICATIONS:? RLQ pain, 6 months ? TECHNIQUE:? After the administration of IV contrast, axial sections were acquired from the lung bases to the pubic symphysis.? Coronal and sagittal reformats were performed.? For radiation dose reduction, the following was used:? automated exposure control, adjustment of mA and/or kV according to patient size. ? COMPARISON:? None. ? FINDINGS:? Image quality:? Excellent.? ? Lung bases:? Unremarkable.? ? Heart:? No significant findings. ? ? ABDOMEN: Liver:? Liver is enlarged measuring 17.8 cm with steatosis. Gallbladder:? Unremarkable.? ? Biliary ducts:? Unremarkable.? ? Pancreas:? Unremarkable.? ? Spleen:? Unremarkable.? ? Adrenal Glands:? Unremarkable.? ? Kidneys and Ureters:? Unremarkable.? ? ? Stomach and Bowel:? Stomach, small bowel loops, and colon are nonobstructive.? The appendix is enlarged measuring 6 8 mm with inflammatory change.? No appendicoli ths.? No perforation.? Moderate colonic stool. Peritoneum:? No abnormal intraperitoneal fluid.? No free air.? ? Ventral Wall: ? No hernia.? Abdominal Nodes:? No retroperitoneal or mesenteric adenopathy by size criteria.? Vessels:? Aorta and inferior vena cava are normal in size.? ? PELVIS: Pelvic Organs:? Unremarkable.? ? Bladder:? Unremarkable.? ? Pelvic Nodes: No enlarged lymph nodes.? Miscellaneous: No inguinal hernias are seen. ? ? ? Bones:? Unremarkable.? IMPRESSION:? ? Enlarged appendix with inflammatory change most suggestive of appendicitis.? No perforation or appendicolith. ? The above findings were discussed with Dr. Alexandra Way on 10/09/2022 at 11:30 p.m.? ? Dictated by: Lida Burton M.D. on 10/09/2022 at 23:28 ? ? Approved by: Lida Burton M.D. on 10/09/2022 at 23:33?? MDM Narrative Medical decision making narrative: Is a 32-year-old female with right lower quadrant pain history started as perium bilical then moved to the right lower quadrant she is mildly tender on exam and notes that palpation of the left makes it hurt on the right and has little bit more rebound on the right than with palpation. Patient's defers anything for pain, she is afebrile, her labs including CBC, CMP, lipase do not show any acute changes. She has a negative test and point of care urine does not show any signs infection or hematuria. Symptoms are concerning for possible appendicitis. Discussed with patient ultrasound versus CT imaging. Did discuss that if we do not see appendix I would recommend CT. She elects to go forward with CT imaging. Patient is discussed options for pain management. That she can still continue to breastfeed after CT does not require pump and dump. CT imaging does show changes consistent with appendicitis. Spoke with Dr. Jenkins, NPO, Daron, plan for potential OR tomorrow with observation under Dr. Jenkins. Discussed with patient she is agreeable, she is still so contacted L and D for breast pump. Discussed she can continue to breastfeed with Zosyn, she has NS ordered at 150ml per hour. Discharge Plan Departure Patient Disposition: Admitted as Observation Clinical Impression: Acute appendicitis Admit Date/Time: 10/09/22 23:40 Admit Provider: Conor Jenkins
--- NOTE | 2022-10-09 22:30 | DI.CT.S_ITS ---
PROCEDURE: CT ABDOMEN PELVIS W CON INDICATIONS: RLQ pain, 6 months TECHNIQUE: After the administration of IV contrast, axial sections were acquired from the lung bases to the pubic symphysis. Coronal and sagittal reformats were performed. For radiation dose reduction, the following was used: automated exposure control, adjustment of mA and/or kV according to patient size. COMPARISON: None. FINDINGS: Image quality: Excellent. Lung bases: Unremarkable. Heart: No significant findings. ABDOMEN: Liver: Liver is enlarged measuring 17.8 cm with steatosis. Gallbladder: Unremarkable. Biliary ducts: Unremarkable. Pancreas: Unremarkable. Spleen: Unremarkable. Adrenal Glands: Unremarkable. Kidneys and Ureters: Unremarkable. Stomach and Bowel: Stomach, small bowel loops, and colon are nonobstructive. The appendix is enlarged measuring 6 8 mm with inflammatory change. No appendicoliths. No perforation. Moderate colonic stool. Peritoneum: No abnormal intraperitoneal fluid. No free air. Ventral Wall: No hernia. Abdominal Nodes: No retroperitoneal or mesenteric adenopathy by size criteria. Vessels: Aorta and inferior vena cava are normal in size. PELVIS: Pelvic Organs: Unremarkable. Bladder: Unremarkable. Pelvic Nodes: No enlarged lymph nodes. Miscellaneous: No inguinal hernias are seen. Bones: Unremarkable. IMPRESSION: Enlarged appendix with inflammatory change most suggestive of appendicitis. No perforation or appendicolith. The above findings were discussed with Dr. Alexandra Way on 10/09/2022 at 11:30 p.m. Dictated by: Lida Burton M.D. on 10/09/2022 at 23:28 Approved by: Lida Burton M.D. on 10/09/2022 at 23:33
[2022-10-09] MEDS: SODIUM CHLORIDE 0.9% 1,000 ML 150 ML IV (23:50)
[2022-10-09] MEDS: PIPERACILLIN/TAZO 4.5 GM in SODIUM CHLORIDE 0.9% 100 ML IV (23:50)
[2022-10-10] VITALS (14 sets, daily range): BP systolic 85–120; BP diastolic 49–68; PULSE 52–92; RESP 11–18; TEMP 35.9–36.6; O2SAT 96–100; BMI 29.9
--- NOTE | 2022-10-10 | PATH_ITS ---
[facility] Accession Number: [id number] No. of containers..01 Tissue . 01 Material submitted: . appendix - APPENDIX . 01 Diagnosis: Appendix, Appendectomy: Acute appendicitis and associated acute serositis. Negative for dysplasia and malignancy. MRV 10/18/2022 1542 Local . 01 Electronically signed: . Page Pickard MD, Pathologist NPI- [id number] . 01 Gross description: . The specimen is received in formalin labeled with the patient's name, , and appendix, and consists of a nielsen vermiform appendix measuring 3.9 cm in length by 0.6 cm in diameter with mesoappendix extending out to 1.3 cm. The serosa is nielsen and roughened with nielsen material consistent with exudate. The margin is inked blue. Sectioning reveals a patent pinpoint lumen with no fecalith grossly identified. The stoll average 0.3 cm thick with no perforation or lesions identified. Continuous Linter Drier Operator sections to include the margin, one-half of the bisected distal tip, and cross sections are submitted in cassette A1. ([id number]) /[facility] 10/15/2022 0422 Local . 01 Pathologist provided ICD-10: K35.80 . 01 CPT . 343419 Specimen Comment: A courtesy copy of this report has been sent to [phone] Performed at: 01 [facility] [address] [place] [address], [place], [place] [id number] MD Jase Arguello MD Phone: [phone]
--- NOTE | 2022-10-10 08:26 | PC.NURSE ---
Addendum entered by Anne Marte R.N. 10/10/22 15:44: Patient had 100cc emesis after she came back from surgery. It was all liquid. That has since resolved and patient ate most of all of her lunch. O nausea and she is comfortable. Addendum entered by Anne Marte R.N. 10/10/22 10:13: Patient taken down to surgery around 0910. Original Note: Assess- Patient is comfortable and just fininshed pumping her breast milk as she has a baby. She denies pain and bowel sounds are present 2 quadrants, and hypoactive on her left side. She will be going for surgery today.
--- NOTE | 2022-10-10 09:20 | CM.DANOTE ---
Initial Discharge Assessment Note: Case reviewed, met with spouse Angel as they were wheeling patient down to surgery. Introduced self and role. Payer: Erik [employer] and [employer] PCP: Unknown 32 year old female admitted yesterday with RLQ pain and diagnosed with appendicitis. She went down to surgery this morning about 9:15 am. Her spouse Angel is accompanying her. This DCP spoke with supportive spouse Angel to obtain history. They have 2 children together, a 2 year old boy and 6 month old girl. His parents live with them in [place] and are helpful, a sister lives next door. Patient is active and independent. PLAN: Discharge home back to previous arrangement when medically cleared for discharge. No DCP planning needs identified. MADAN Discharge Planning/Care Management CM Discharge Assessment Start: 10/10/22 09:16 Freq: Status: Active Protocol: Document 10/10/22 09:16 (Rec: 10/10/22 09:19 [id number]) Discharge Planning Assessment Assigned Air Motor Repairer Flower Moyer RN/DCP Advance Directives? No Advance Directives on File No History Provided By Patient Prior Living Arrangements House Comment Patient and spouse have 2 children, 2 year old and 6 month old. [id number] and [id number] live with patient. Sister lives next door. Household Members spouse,family,children Type of transporation used prior to Drives own vehicle admit Independent with ADL's Yes Is patient alert and oriented? Yes Caregiver for Another Yes Barriers to Discharge No Discharge Plan Home Review Status In Process Next Review Type Continued Stay Review
[2022-10-10] MEDS: LACTATED RINGERS 1,000 ML 42 ML IV (09:37)
--- NOTE | 2022-10-10 10:13 | P.HP_ITS ---
History of Present Illness History of Present Illness Date Patient Seen: 10/10/22 Time Patient Seen: 10:13 Chief complaint: RLQ pain Narrative: Nisreen is a 32-year-old woman who is 3 months who developed periumbilical abdominal pain that migrated to the right lower quadrant over the past 48 hours or so. Her white blood cell count was normal but she had a CT scan in the emergency department that showed acute appendicitis without evidence of perforation or abscess. Her pain is currently 0. PFSH Medical History (Updated 10/10/22 @ 10:22 by Conor Jenkins MD) Asthma Carpal tunnel syndrome Chronic right hip pain Nonalcoholic fatty liver disease Seasonal allergies Shingles Vaginismus Surgical History H/O tympanostomy Previous section Family History Family/Other Hyperthyroidism Mother Anxiety Hypertension Grandmother Uterine cancer Father Hyperlipidemia Grandmother Bipolar 1 disorder Family/Other Bipolar 1 disorder Grandmother Diabetes mellitus Grandfather Alcoholism Liver failure Social History marital status: number of children: 1 household members: spouse, family and children lives independently: Yes housing: house pets and animals: Yes (1 dog, livestock) education level: college ([employer] Degree) occupational status: employed current occupational exposures/hazards: No 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 history: 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, 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: No travel history: over 6 months ago seatbelt use: always helmet use: Yes water heater temp set < 120 deg: Yes working smoke detector in home: Yes fire extinguisher in home: Yes carbon monox detector in home: Yes firearms in home: Yes firearms unloaded and locked: Yes do you feel safe at home: Yes Smoking Status: Never smoker second hand exposure: No alcohol intake: current substance use type: does not use during the past year weight has: remained stable well-balanced diet: daily or most days daily servings fruits/ve or more times/day caffeine: Yes Type(s) of exercise: walking and other (active during the day) frequency: 5-6 times per week Meds Home Medications and Allergies Home Medications Medication Instructions Recorded Confirmed Type cetirizine 10 mg capsule (Zyrtec) 10 mg PO DAILY PRN Allergies 09/01/21 10/10/22 History triamcinolone acetonide 55 mcg 2 spray intranasal DAILY PRN 09/01/21 10/10/22 History nasal spray aerosol allergic symptoms Allergies Allergy/AdvReac Type Severity Reaction Status Date / Time No Known Allergies Allergy Verified 09/20/22 13:58 Exam Vital Signs (past 8 hours): - 10/10/22 04:00 10/10/22 08:10 10/10/22 09:38 Temperature 96.8 F L 97.5 F L 97.6 F Pulse Rate 64 55 L 54 L Respiratory Rate 16 18 16 Blood Pressure 91/52 L 85/49 L 98/66 Pulse Oximetry 99 99 98 Oxygen Delivery Method Room Air Oxygen Flow Rate 0 0 Oxygen Delivery Method Room Air Oxygen Flow Rate 0 Narrative Exam Narrative: Abdomen soft Const General: healthy appearing Objective Labs 10/09/22 20:37 10/09/22 20:37 Labs: Laboratory Results - last 24 hr 10/09/22 10/09/22 20:37 20:37 WBC 8.5 RBC 4.65 Hgb 14.5 Hct 41.9 MCV 90.2 MCH 31.2 MCHC 34.6 RDW 12.8 Plt Count 232 Neut % (Auto) 54.9 Lymph % (Auto) 35.2 [place] % (Auto) 6.8 Eos % (Auto) 2.7 Baso % (Auto) 0.4 Neut # (Auto) 4600 Lymph # (Auto) 3000 [place] # (Auto) 600 Eos # (Auto) 200 Baso # (Auto) 0 Sodium 137 Potassium 3.8 Chloride 99 Carbon Dioxide 29 BUN 14 Creatinine 0.84 Estimated GFR > 60 BUN/Creatinine Ratio 16.7 Glucose 86 Calcium 9.0 Total Bilirubin 0.3 AST 23 ALT 17 Alkaline Phosphatase 82 Total Protein 8.3 H Albumin 4.6 Globulin 3.7 Albumin/Globulin Ratio 1.2 Lipase 63 Assessment & Plan Assessment and plan (1) Acute appendicitis: Qualifiers: Acute appendicitis type: with localized peritonitis Appendicitis gangrene presence: without gangrene Appendicitis perforation presence: without perforation Appendicitis abscess presence: without abscess Qualified Code(s): K35.30 - Acute appendicitis with localized peritonitis, without perforation or gangrene Status: Acute Plan We reviewed the risks and benefits of laparoscopic appendectomy versus antibiotic therapy or acute appendicitis. She would like to proceed with laparoscopic appendectomy. Quality VTE Deep Vein Thrombosis/Pulmonary Embolism Present on Admission: No
[2022-10-10] MEDS: PIPERACILLIN/TAZO 4.5 GM in SODIUM CHLORIDE 0.9% 100 ML IV (10:42)
--- NOTE | 2022-10-10 11:01 | SUR.OPER ---
Supine on padded OR bed, head on pillow, right arm secured on padded arm boards at <90 degrees abduction, legs uncrossed, safety belt at thigh, tape over blanket over lower legs. left arm covered with gel pad and tucked against body
[2022-10-10] MEDS: BUPIVACAINE 0.5% (PF) 30 ML, EPINEPHrine 0.15 MG INJ (11:13)
--- NOTE | 2022-10-10 11:43 | P.OP_ITS ---
Operative Date/Time/Diagnoses Date of procedure: 10/10/22 Time of procedure: 11:43 Pre-op diagnosis: Acute appendicitis Post-op diagnosis: same Procedure & Clinicians Procedure: Laparoscopic appendectomy Same procedure as scheduled: Yes Surgeon: Conor Jenkins Anesthesia Type: General Operative Notes Procedure in detail: Procedure in detail: The patient was on IV antibiotics. The patient was brought to the operating room, placed on the table in the supine position and general endotracheal anesthesia was induced. A time-out was performed. The abdomen was prepped and draped in the usual fashion. After injection of local anesthetic a 1 cm infraumbilical incision was created with a 15 blade scalpel. The umbilical stalk was grasped with a Gricel clamp to elevate the abdominal wall. The infraumbilical midline fascia was cleared over 1 cm and the fascia was scored with cautery. The peritoneum was pierced with a Peon clamp. The Rama port was placed and the abdomen was insufflated to 15 mmHg. The camera was inserted and there was no evidence of any injury from the entry. Next, 5 mm ports were placed in the suprapubic and left lower quadrant positions under direct vision. The patient was placed in Trendelenburg with the right-side elevated. The t erminal ileum was swept away from the cecum and the appendix was visualized. The appendix was inflamed and distended but not perforated and there was no evidence of gangrene. The mesoappendix was divided with the LigaSure device to the base. Two PDS Endoloops were placed at the base and a 3rd endoloop was placed about a cm distally and the appendix was divided sharply. The specimen was placed in a Endo-Catch bag. A small amount of fluid with suctioned from the base of the appendix and pelvis. The table was flattened and the terminal ileum and omentum were allowed to slide in over the appendiceal stump. Finally, the 5 mm ports were removed under direct vision. The pneumoperitoneum was released and the Rama port was removed followed by the Endo-Catch bag. Additional local was injected into the fascia and the infraumbilical incision was closed with 2 interrupted 2-0 Vicryl sutures. The skin incisions were closed with 4 Monocryl. Steri-Strips were applied followed by Band-Aids. EBL: 5 mL Specimen: Appendix Post-operative Condition: stable Disposition: PACU
[2022-10-10] MEDS: LACTATED RINGERS 1,000 ML 100 ML IV (12:37)
[2022-10-10] MEDS: PIPERACILLIN/TAZO 3.375 GM in SODIUM CHLORIDE 0.9% 100 ML IV (15:14)
== END 2022-10-10 19:40 | disposition home or self-care (01) ==
LOC: ED 23:40 → AC 10-10 08:05
PROVIDERS: Admitting Provider Surgery; Emergency Provider Emergency Medicine; Referring Provider Emergency Medicine; Visit Provider Surgery
PROC: 0DTJ4ZZ Resection of Appendix, Percutaneous Endoscopic Approach (ICD-10-PCS; CPT 44970; principal; 2022-10-10 11:00)
DX: K35.30 Acute appendicitis with localized peritonitis, without perforation or gangrene (principal)
CPT/HCPCS: 44970; 36415; 74177; 80053; 81003; 81025; 83690; 85025; 96365; 96366; 99221; 99284; G0378; J0171; J0330; J1100; J1885; J2250; J2405; J2543; J2704; J3010; Q9967

== ENCOUNTER → 2023-12-07 11:38 | Outpatient (CLI) | payer OTHER, MEDICAID, SELFPAY ==
[2022-10-10 00:12] VITALS: BMI 29.9
[2023-12-07 15:13] LABS: Urine N gonorrhoeae NOT DETECTED
[2023-12-07 15:18] LABS: Urine Chlamydia NOT DETECTED
== END ==
PROVIDERS: Visit Provider Obstetrics & Gynecology
DX: Z34.81 Encounter for supervision of other normal pregnancy, first trimester (principal); Z3A.08 8 weeks gestation of pregnancy
CPT/HCPCS: 87491; 87591

== ENCOUNTER → 2024-01-04 10:32 | Outpatient (CLI) | payer OTHER, MEDICAID, SELFPAY ==
[2022-10-10 00:12] VITALS: BMI 29.9
[2024-01-04 11:38] LABS: Natera Collection Specimen Collected
[2024-01-04 12:24] LABS: Add Manual Diff / Slide Review NO; Basophils Absolute Auto 0 /uL (0-100); Basophils Percent Auto 0.1 % (0-2); Eosinophils Absolute Auto 100 /uL (0-450); Eosinophils Percent Auto 1.3 % (2-4); Hematocrit 38.9 % (36-46); Hemoglobin 13.3 g/dL (12.0-16.0); Lymphocytes Absolute Auto 1900 /uL (1100-4500); Mean Corpuscular HGB Conc 34.2 % (30-36); Mean Corpuscular Hemoglobin 31.3 PG (26-34); Mean Corpuscular Volume 91.5 fL (80-100); Monocytes Absolute Auto 500 /uL (0-900); Monocytes Percent Auto 5.3 % (3-14); Neutrophils Absolute Auto 7500 /uL (1500-7000); Neutrophils Percent Auto 74.3 % (50-75); Platelet Count 195 X10^3/uL (150-400); Red Blood Cell Count 4.25 X10^6/uL (4.0-5.2); White Blood Cell Count 10.1 X10^3/uL (4.5-11.0)
[2024-01-04 13:09] LABS: Alanine Aminotransferase 14 IU/L (<35); Aspartate Aminotransferase 21 IU/L (14-36); BUN Creatinine Ratio 18.9 (6-22); Blood Urea Nitrogen 10 mg/dL (7-17); Estimated Glomerular Filt Rate > 60 mL/min (>60); Uric Acid 4.1 mg/dL (2.5-6.2)
[2024-01-04 16:07] LABS: Hepatitis B Surface Antigen NEGATIVE s/c (NEGATIVE); Rubella Antibody IgG 85.2 IU/mL (>15)
[2024-01-04 16:23] LABS: HIV 1 & 2 Ab/Ag 4th Gen Combo NEGATIVE (NEGATIVE); Hep C Virus Ab w/Reflex Quant NEGATIVE s/c (NEGATIVE)
[2024-01-06 08:11] LABS: RPR Screen Non Reactive (Non Reactive)
[2024-01-06 11:36] LABS: Varicella IgG Antibody Reactive (Non Reactive)
== END ==
PROVIDERS: Specialist; Referring Provider Obstetrics & Gynecology; Visit Provider Obstetrics & Gynecology
DX: O09.299 Supervision of pregnancy with other poor reproductive or obstetric history, unspecified trimester (principal); Z3A.12 12 weeks gestation of pregnancy
CPT/HCPCS: 36415; 80055; 82565; 84450; 84460; 84520; 84550; 86787; 86803; 86850; 86900; 86901; 87086; 87389

== ENCOUNTER → 2024-02-02 10:11 | Outpatient (CLI) | payer OTHER, MEDICAID, SELFPAY ==
[2022-10-10 00:12] VITALS: BMI 29.9
[2024-02-06 13:13] LABS: AFP Value 26.3 ng/mL (.); Gest Age on Col Date 16.1 weeks (.); Gestational Age EDD (.); Insulin Dep Diabetes No (.); OSBR Risk 1IN 10000 (.); Results Report (.); Test Results *Screen Negative* (.)
== END ==
PROVIDERS: PCP Physician Assistant; Referring Provider Obstetrics & Gynecology; Visit Provider Obstetrics & Gynecology
DX: Z36.0 Encounter for antenatal screening for chromosomal anomalies (principal)
CPT/HCPCS: 36415; 82105

== ENCOUNTER → 2024-03-01 07:31 | Outpatient (CLI) | payer OTHER, SELFPAY ==
[2022-10-10 00:12] VITALS: BMI 29.9
--- NOTE | 2024-03-01 07:32 | DI.US.S_ITS ---
PROCEDURE: US OB >= 14 WEEKS FETUS INDICATIONS: 20 Week Anatomy Scan OUTSIDE/PRIOR DATING DATA: Last menstrual period (LMP): 12/08/2023 LMP-based estimated date of delivery (REX): 07/13/2024 Working REX provided is 07/18/2024 TECHNIQUE: Real-time scanning was performed of the fetus, with image documentation and biometric measurements. COMPARISON: [facility], US, OB >= 14 WEEKS FETUS, 02/22/2022, 14:36. FINDINGS: General: A single living intrauterine gestation is present. Presentation: Breech. Placenta: Placental position is posterior fundal , without previa. Amniotic fluid index: 14.1 cm, normal range is 5-24 cm. Single deepest vertical pocket is 5 point cm. heart rate 139 beats per minute. Maternal cervical canal: 4.2 cm long. Normal lower limit is 2.5 cm. biometrics: Biparietal diameter: 4.7 cm, 20 weeks and 1 day Head circumference: 17.97 cm, 20 weeks and 3 days Abdominal circumference: 16.2 cm, 21 weeks and 2 days Femur length: 3.4 cm, 20 weeks and 6 days Clinically estimated gestational age: 20 weeks and 1 day Composite gestational age from present scan: 20 weeks and 5 days Estimated weight and percentile: 390 g, 88% Anatomic survey: Neuro: Ventricles are non-dilated at less than 10 mm. Cisterna magna is normal at 3-11 mm. Cerebellum is normal in size and morphology. Nuchal skin fold: Normal at less than 6 mm between 14-21 weeks gestational age. Face: Nose and lips, facial profile are normal. Spine: No evidence for spina bifida. Heart: 4-chambered heart is present, with possible echogenic focus at the LVOT, otherwise unremarkable outflow tracts Diaphragm: Diaphragm is intact. Stomach: Left-sided stomach is present. Kidneys: No hydronephrosis. Normal is less than 5 mm in 2nd trimester, less than 7 mm in 3rd trimester. Cord: 3-vessel cord has orthotopic insertion. Bladder: Normal in size. Extremities: All 4 extremities identified. IMPRESSION: Living intrauterine gestation in breech presentation. Normal KRISTAN. EFW at the 88th percentile, upper limit of normal. Possible echogenic focus at the LVOT. Otherwise unremarkable anatomic survey. Cardiac echogenic foci are nonspecific in the absence of other significant anatomic abnormalities, however consider correlation maternal risk factors and aneuploidy testing. Dictated by: David Garay M.D. on 03/01/2024 at 10:53 Approved by: David Garay M.D. on 03/01/2024 at 10:57
== END ==
LOC: US 07:32
PROVIDERS: PCP Physician Assistant; Referring Provider Obstetrics & Gynecology; Visit Provider Obstetrics & Gynecology
DX: Z34.82 Encounter for supervision of other normal pregnancy, second trimester (principal); Z3A.20 20 weeks gestation of pregnancy
CPT/HCPCS: 76811

== ENCOUNTER → 2024-03-29 10:14 | Outpatient (CLI) | payer OTHER, SELFPAY ==
[2022-10-10 00:12] VITALS: BMI 29.9
[2024-03-29 10:46] LABS: Hematocrit 37.5 % (36-46); Hemoglobin 12.8 g/dL (12.0-16.0)
== END ==
LOC: LAB 10:16
PROVIDERS: PCP Physician Assistant; Referring Provider Obstetrics & Gynecology; Visit Provider Obstetrics & Gynecology
DX: Z34.82 Encounter for supervision of other normal pregnancy, second trimester (principal); Z3A.26 26 weeks gestation of pregnancy
CPT/HCPCS: 36415; 85014; 85018; 86850

== ENCOUNTER → 2024-06-20 10:08 | Outpatient (CLI) | payer OTHER, SELFPAY ==
[2022-10-10 00:12] VITALS: BMI 29.9
[2024-06-21 10:09] LABS: Strep Grp B PCR NEG for Grp B Strep
== END ==
PROVIDERS: PCP Physician Assistant; Visit Provider Specialist
DX: Z34.93 Encounter for supervision of normal pregnancy, unspecified, third trimester (principal); Z3A.36 36 weeks gestation of pregnancy
CPT/HCPCS: 87653

== ENCOUNTER 2024-07-12 05:40 | Inpatient (IN) | payer OTHER, SELFPAY ==
[2022-10-10 00:12] VITALS: BMI 29.9
[2024-07-12] VITALS (7 sets, daily range): BP systolic 116–135; BP diastolic 67–76; PULSE 82–120; RESP 15–30; TEMP 36.1; O2SAT 96–97
[2024-07-12] MEDS: ACETAMINOPHEN 325 MG TABLET 975 MG PO (07:23)
[2024-07-12] MEDS: CITRIC ACID/SODIUM CITRATE 15 ML SOLUTION 30 ML PO (07:24)
[2024-07-12 07:26] LABS: Add Manual Diff / Slide Review NO; Basophils Absolute Auto 100 /uL (0-100); Basophils Percent Auto 0.8 % (0-2); Eosinophils Absolute Auto 100 /uL (0-450); Eosinophils Percent Auto 1.1 % (2-4); Hematocrit 37.4 % (36-46); Hemoglobin 12.9 g/dL (12.0-16.0); Lymphocytes Absolute Auto 2200 /uL (1100-4500); Lymphocytes Percent Auto 19.4 % (25-40); Mean Corpuscular HGB Conc 34.4 % (30-36); Mean Corpuscular Hemoglobin 32.1 PG (26-34); Mean Corpuscular Volume 93.5 fL (80-100); Monocytes Absolute Auto 800 /uL (0-900); Monocytes Percent Auto 7.3 % (3-14); Neutrophils Absolute Auto 7900 /uL (1500-7000); Neutrophils Percent Auto 71.4 % (50-75); Platelet Count 145 X10^3/uL (150-400); White Blood Cell Count 11.1 X10^3/uL (4.5-11.0)
--- NOTE | 2024-07-12 07:42 | PM.OBHP.IH.1 ---
OB HPI Date/Time Date of admission: 07/12/24 Date Patient Seen: 07/12/24 Time Patient Seen: 07:42 History of Present Condition Chief complaint: INPT C SECTION REX Calculator Estimated Delivery Date Method Current WG Current Estimate 07/18/24 Ultrasound #1 39w 1d Other Estimates 07/13/24 LMP (Certain) 39w 6d 07/17/24 Conception 39w 2d : 3 Para: 2 care: good care, initiated at week # (8), number of visits (2) and pounds weight gain (41) Dating criteria OB: LMP confirmed by 1st trimester US Ultrasounds: normal 1st trimester US and abnormal US findings (echogenic focus in LVOT) Obstetrical complications: none Medical complications OB: none Indications Operative indications ( section): previous uterine surgery Preadmission Labs Last OB Lab Results: Blood Type A Negative 01/04/24 10:39 Antibody Screen Negative 03/29/24 10:18 Hct 37.4 % (36-46) 07/12/24 07:15 Hgb 12.9 g/dL (12.0-16.0) 07/12/24 07:15 Hep Bs Antigen Negative s/c (NEGATIVE) 01/04/24 10:39 Hepatitis C Antibody Negative s/c (NEGATIVE) 01/04/24 10:39 Rubella Antibody 85.2 IU/mL (>15) 01/04/24 10:39 VZV IgG Antibody Reactive (Non Reactive) 01/04/24 10:39 Group B Strep (PCR) Neg for grp b strep 06/20/24 10:08 -: Chlamydia screen: negative, Gonorrhea screen: negative and Urine: negative -: PAP smear: Normal Genetic Screens: Cell-free DNA: Normal External Labs -: Urine: negative Prior (ies) Past Pregnancies Del. Date GA/Weeks Labor Lgth Wt Sex Route Outcome Anesthesia Place Delv Breastfeed Preg Comp Name 06/29/20 38 48 6 lb 14 oz Male live - full term [place], [place] 2 1/2 years pre-eclampsia other Peter 04/08/22 38.5 Female live - full term [facility] Still going @20 months none Angela Delivery Date: 06/29/20 Last Updated by: Prisca Wise RN anemia, tachycardia, SOB (worked up by cards and cleared) Evaluation Evaluation Baseline heart rate: 115 Variability: Moderate (11-25) monitor accelerations: Present Monitor Decelerations: Absent Status: Category l PFSH Medical History (Updated 04/26/24 @ 08:25 by Salud Borges MD) Acute appendicitis Carpal tunnel syndrome Chronic right hip pain Vaginismus Shingles Surgical History (Updated 12/07/23 @ 12:12 by Salud Borges MD) [place] teeth extracted History of appendectomy H/O tympanostomy Previous section Family History (Updated 11/10/23 @ 13:13 by Prisca Wise, ROBBY) Aunt Hyperthyroidism Mother Anxiety Hypertension Osteoarthritis Grandmother Uterine cancer Father Hyperlipidemia Grandmother Bipolar 1 disorder Family/Other Bipolar 1 disorder Grandmother Diabetes mellitus Diabetic kidney disease Heart disease Grandfather Alcoholism Liver failure Diabetes mellitus Grandfather Emphysema lung Heavy smoker Social History marital status: number of children: 2 household members: spouse, family (MIL and FELISA) and children lives independently: Yes caregiver/support person: Yes housing: house pets and animals: Yes (1 dog) education level: college (Bachelor's Degree, most of master's program) occupational status: employed current occupational exposures/hazards: No 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 history: [employer], 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 shereen/buddhist: Quaker special hsereen needs: No travel history: over 6 months ago seatbelt use: always helmet use: Yes water heater temp set < 120 deg: Yes working smoke detector in home: Yes fire extinguisher in home: Yes carbon monox detector in home: Yes firearms in home: Yes firearms unloaded and locked: Yes do you feel safe at home: Yes Smoking Status: Never smoker second hand exposure: No alcohol intake: former (very occasionally when not ) substance use type: does not use during the past year weight has: other (back to nearly pre-baby weight) well-balanced diet: daily or most days daily servings fruits/ve or more times/day caffeine: Yes (single strong cup coffee in AM) Type(s) of exercise: walking and other (active during the day) frequency: daily Meds Home Medications and Allergies Home Medications Medication Instructions Recorded Confirmed Type cetirizine 10 mg capsule (Zyrtec) 10 mg PO DAILY PRN Allergies 09/01/21 07/12/24 History docosahexaenoic acid 200 mg mg PO 11/10/23 07/05/24 History capsule ( DHA) vitamin-ferrous sulfate tab PO 11/10/23 07/05/24 History 27 mg iron-folic acid 0.8 mg tablet RSVPreF3 antigen-AS01E 0.5 ml IM ONCE #1 ea 06/07/24 07/05/24 Rx adjuvant(PF) 120 mcg/0.5 mL IM suspension, kit breast pump #1 ea 07/05/24 07/05/24 Rx Allergies Allergy/AdvReac Type Severity Reaction Status Date / Time No Known Allergies Allergy Verified 07/05/24 11:09 OB Exam Narrative Exam Narrative: Generally: Patient is sitting up in bed, no acute distress Lungs: Clear to auscultation bilaterally Cardiovascular: Regular rate and rhythm Fundal height: 39 cm Estimated weight: 8 lb Abdomen: Well-healed Pfannenstiel scar Extremities: Trace edema Objective Labs 07/12/24 07:15 Labs: Laboratory Results - last 24 hr 07/12/24 07:15 WBC 11.1 H RBC 4.00 Hgb 12.9 Hct 37.4 MCV 93.5 MCH 32.1 MCHC 34.4 RDW 14.0 Plt Count 145 L Neut % (Auto) 71.4 Lymph % (Auto) 19.4 L [place] % (Auto) 7.3 Eos % (Auto) 1.1 L Baso % (Auto) 0.8 Neut # (Auto) 7900 H Lymph # (Auto) 2200 [place] # (Auto) 800 Eos # (Auto) 100 Baso # (Auto) 100 Assessment and Plan Assessment and Plan Assessment and Plan narrative: Assessment: 33-year-old 3 para 2 at 39-,1/7 weeks gestation with 2 prior sections Plan: Repeat low-transverse section The risks, benefits, and alternatives to the procedure were explained to the patient. The risks including bleeding, infection, injury to the bowel, bladder, or ureters. She understands these risks and agrees to proceed. A full par Q was held and consent form was signed. Time-Based Coding :: [TOTAL MINUTES] spent with patient and on the chart (including review of chart, obtaining history, exam, reviewing outside data, placing orders, documenting exam and treatment plan, and counseling patient) on [DATE].
--- NOTE | 2024-07-12 07:48 | PM.PREOP ---
Pre-operative Note Interval Note History & Physical reviewed/Exam performed by Physician: Yes Changes to H&P: No H&P completed within 30 days and has changed as indicated here:: 07/12/24
[2024-07-12] MEDS: CEFAZOLIN 2 GM/100 ML PREMIX 100 ML IV (08:00)
--- NOTE | 2024-07-12 08:27 | SUR.OPER ---
Supine on padded OR bed, head on pillow, arms secured on padded arm boards at <90 degrees abduction, bump to right hip, legs uncrossed, safety belt at thigh.
[2024-07-12] MEDS: OXYTOCIN PREMIX 30 UNIT/500 ML PLAST..BAG 200 UNIT IV (08:56)
--- NOTE | 2024-07-12 09:12 | PM.OBCS.1 ---
Operative Date/Time/Diagnoses Date of procedure: 07/12/24 Time of procedure: 09:12 Pre-op diagnosis: 39+ 1 week's gestation 2 prior section Post-op diagnosis: same Procedure & Clinicians Procedure: Repeat low transverse section Same procedure as scheduled: Yes Indications: 39+ 1 week's gestation Two prior section Surgeon: Salud Avila Yes if Unassisted: No Applied Behavior Specialist: Eric Callahan Reason for Applied Behavior Specialist: The clerical dentist assistant was necessary to retract upon entry into the abdomen and uterus. He assisted with delivery of the infant with fundal pressure. He assisted with closure with retraction, clipping of suture, and closure of the contralateral fascia. Anesthesia Type: Spinal (With Duramorph) Operative Notes Findings: Live male in the ANGELY presentation 6 cm midbody of the uterus fibroid Normal tubes and ovaries Closure Type: primary Specimen(s): cord blood and placenta Intraoperative meds administered: Acetaminophen, Duramorph, Ketorolac and Pitocin Applied: Catheter (To continuous drainage) Estimated Blood Loss (mL): 500 Blood products transfused: none Procedure in detail: The patient was taken to the operating room where she was placed in the seated position. Spinal anesthesia with Duramorph was administered. The patient was then placed in the dorsal supine position with a leftward tilt. She was prepped and draped in the usual sterile fashion. A timeout was performed. After spinal analgesia was found to be adequate, a Pfannenstiel skin incision was made through the previous incision and carried through to the underlying layer fascia. The fascia was nicked in the midline, and the incision extended bilaterally with the Mckenna scissors. The superior aspect of the fascial incision was grasped with a Magnolia clamps, elevated, and the underlying rectus muscles dissected off sharply and bluntly. Attention was then turned to the inferior aspect of this incision which in a similar fashion was grasped with a Abbe clamps, elevated, and the underlying rectus muscles dissected off sharply and bluntly. The rectus muscles were in the midline. The peritoneum was identified, grasped between 2 hemostats, and entered sharply with the Metzenbaum scissors. This incision was extended superiorly and inferiorly with good visualization of the bladder. The bladder blade was inserted. The vesicouterine peritoneum was identified, grasped with the pickup, and entered sharply with the Metzenbaum scissors. This incision was extended bilaterally, and the bladder flap was created digitally. The bladder blade was reinserted. The lower uterine segment was incised in a transverse fashion with the scalpel. Upon entering the amniotic sac there was moderate amount of clear amniotic fluid. The infant's head was delivered without difficulty. The nose and mouth were suctioned with bulb suction. The remainder of the body delivered without difficulty. The cord was double clamped and cut after 1 minute. The infant was handed off to waiting RN and RT. The placenta was delivered by expression. The uterus was cleared of all clots and debris. The uterine incision was repaired with #1 chromic in a running interlocking fashion, and a second layer the same suture was used for an imbricating layer. Hemostasis was achieved. The tubes and ovaries were examined and were found to be normal. The gutters were cleared of all clots and debris. The bladder flap was reapproximated using 2-0 Vicryl in a running fashion. The parietal peritoneum was closed using 2-0 Vicryl in a running fashion. The fascia was reapproximated using 0 Vicryl in a running fashion. The subcutaneous layer was copiously irrigated with warm normal saline. 5 simple interrupted sutures of 3-0 Vicryl were placed to reapproximate the subcutaneous layer. The skin was closed with 4-0 Monocryl in a subcuticular fashion. Steri-Strips were placed. An Aquacel dressing was placed. The uterus was expressed of a small amount of old blood. Sponge, lap, and instrument counts were correct x-2. The patient tolerated the procedure well, and was taken to PACU in stable condition. Complications: none Baby 1: Delivery Date: 07/12/24 Delivery Time: :28 Gender: Male Presentation: vertex Position: Right Occiput Transverse Placental Delivery Description: Expressed Cord Vessel Description: 3 Vessels and Clamped/Cut score (1 min): 9 score (5 min): 9 Post-operative Condition: stable Disposition: PACU Aftercare: routine postop
[2024-07-12] MEDS: ACETAMINOPHEN 325 MG TABLET 650 MG PO ×2 (13:04→19:18)
[2024-07-12] MEDS: KETOROLAC 30 MG/ML VIAL IV ×2 (15:05→21:38)
[2024-07-13] MEDS: ACETAMINOPHEN 325 MG TABLET 650 MG PO ×4 (00:52→21:16)
[2024-07-13] MEDS: KETOROLAC 30 MG/ML VIAL IV (03:20)
[2024-07-13 05:15] LABS: Hematocrit 33.8 % (36-46); Hemoglobin 11.7 g/dL (12.0-16.0)
[2024-07-13] MEDS: PRENATAL VIT,CALC/IRON/FOLIC 1 TABLET 1 TAB PO (09:19)
[2024-07-13] MEDS: DOCUSATE 100 MG CAPSULE PO (09:19)
[2024-07-13] MEDS: IBUPROFEN 600 MG TABLET PO ×3 (09:19→21:16)
[2024-07-13] MEDS: OXYCODONE IR 5 MG TABLET PO (22:17)
[2024-07-14] MEDS: ACETAMINOPHEN 325 MG TABLET 650 MG PO ×2 (02:59→08:42)
[2024-07-14] MEDS: IBUPROFEN 600 MG TABLET PO ×2 (02:59→08:41)
[2024-07-14] MEDS: DOCUSATE 100 MG CAPSULE PO (08:41)
[2024-07-14] MEDS: PRENATAL VIT,CALC/IRON/FOLIC 1 TABLET 1 TAB PO (08:41)
[2024-07-14] MEDS: OXYCODONE IR 5 MG TABLET PO (12:13)
[2024-07-14] MEDS: RHO(D) IMMUNE GLOBULIN 1,500 UNIT SYRINGE 1500 UNIT IM (12:21)
--- NOTE | 2024-07-14 17:21 | PM.OBPN.1 ---
Subjective - OB Subjective Patient comments: no complaints, pain well controlled, tolerating diet and flatus present baby status: doing well and nursing well [place] feeding status: exclusively breast feeding Date Patient Seen: 07/13/24 Time Patient Seen: 12:30 Interval history: Postop day # 1 status post repeat low transverse section. Patient voiding without the catheter. Pain well controlled. Bleeding tapering. going well. Passing flatus. Tolerating a diet. No nausea or vomiting. Exam Vital Signs (past 8 hours): Oxygen Delivery Method Room Air Narrative Exam Narrative: Generally: Patient is sitting up in bed, no acute distress Lungs: Clear to auscultation bilaterally Cardiovascular: Regular rate and rhythm Fundus: Firm at U. fibroid palpable. Incision: Clean dry and intact with Aquacel dressing Extremities: 1+ edema, negative Homans Objective Labs 07/13/24 05:04 Assessment & Plan Plan day: 1 plan OB: routine postop care Comments: Anticipate discharge July 14, 2024 Time-Based Coding :: [TOTAL MINUTES] spent with patient and on the chart (including review of chart, obtaining history, exam, reviewing outside data, placing orders, documenting exam and treatment plan, and counseling patient) on [DATE].
--- NOTE | 2024-07-14 17:23 | P.DS_ITS ---
Discharge Providers Provider Date of admission: 07/12/24 05:40 Discharge Date: 07/14/24 Primary care physician: Surekha Borden PA-C Consults: 07/12/24 10:58 Consult to Evidence Custodian Routine Comment: Discharge provider: Salud Borges MD Summary Hospital Course Date Patient Seen: 07/14/24 Time Patient Seen: 08:15 Diagnoses: 39+ 1 week's gestation Two prior sections Repeat low transverse section 6 cm midbody of the uterus fibroid Normal tubes and ovaries Hospital Course: Patient is a 33-year-old 3 para 2 who presented on July 12, 2024 for a scheduled repeat low transverse section. She had had 2 prior sections. She underwent this procedure under spinal anesthesia without difficulty. Her course was unremarkable. On post off day # 2, she was discharged home with normal voiding. She was tolerating a diet. Pain was well controlled with oral medications. No nausea or vomiting. She was passing flatus. was going well. Bleeding was tapering. She is to follow-up at 1 week for an Aquacel dressing removal. Peripartum Data Delivery Method: Section (Repeat) Procedures: Spinal anesthesia with Duramorph Repeat low transverse section complications: none 1: Gender: Male Disposition of : home Status at Discharge Cognitive/behavioral status at discharge: oriented Functional status at discharge: independent ambulation Overall status at discharge: patient is progressing back to baseline Time Spent with Patient Time attestation: Total time spent providing and/or coordinating discharge services: Time spent: Less than 30 minutes Objective Labs 07/13/24 05:04 Exam Vital Signs (past 8 hours): Oxygen Delivery Method Room Air Narrative Exam Narrative: Generally: Patient is sitting up in bed, no acute distress Lungs: Clear to auscultation bilaterally Cardiovascular: Regular rate and rhythm Fundus: Firm at U Incision: Clean dry and intact with Aquacel dressing Extremities: 1+ edema, negative Homans Discharge Plan Discharge Plan Patient Disposition: Home Provider Discharge Comment: Call with fever, chills, redness or drainage around incision or bleeding vaginally more than a pad in an hour Tylenol 650mg every 6 hours Ibuprofen 600 mg every 6 hours Stool softner or fiber as needed Discharge orders & Medications Prescriptions: New oxycodone 5 mg tablet 5 mg PO Q4H PRN (Reason: pain) Qty: 20 0RF Continued Zyrtec 10 mg capsule 10 mg PO DAILY PRN (Reason: Allergies) DHA 200 mg capsule PO vit-ferrous sulfat-FA 27 mg iron- 0.8 mg tablet PO Discontinued RSVPreF3 antigen-AS01E (PF) 120 mcg/0.5 mL suspension for reconstitution 0.5 ml IM ONCE Qty: 1 0RF No Action (DME) breast pump Device See Rx Instructions .ROUTE .MEDSUPPLY Qty: 1 0RF Rx Instructions: Double electric Follow up/Referrals: Salud Borges MD [Physician] - (Please follow up with on July 19 at 1100 am for your one week incision check. ) Diet/Activity/Treatments Diet: Regular Activity: No heavy lifting, nothing more than baby for the first 2 weeks Skin/Wound/Dressing Care Report to your healthcare provider any signs of infection, such as:: chills, fever, increased pain, unusual drainage and unusual redness Dressing: Do not remove Visit Report/Discharge Packet Instructions: DI for , DI for Prescription Opioid Use Stand Alone Forms: Discharge: Care, Patient Portal/API, Stroke Signs & Symptoms Discharge Data Primary Care Provider: Surekha Borden
== END 2024-07-14 12:30 | disposition home or self-care (01) | DRG 788 ==
PROVIDERS: Specialist; Admitting Provider Obstetrics & Gynecology; PCP Physician Assistant; Referring Provider Obstetrics & Gynecology; Visit Provider Obstetrics & Gynecology
PROC: 10D00Z1 Extraction of Products of Conception, Low, Open Approach (ICD-10-PCS; CPT 59514; principal; 2024-07-12 07:45)
DX: O34.211 Maternal care for low transverse scar from previous cesarean delivery (principal); Z3A.39 39 weeks gestation of pregnancy; Z37.0 Single live birth; O34.13 Maternal care for benign tumor of corpus uteri, third trimester; D25.9 Leiomyoma of uterus, unspecified
CPT/HCPCS: 36415; 59050; 85014; 85018; 85025; 85461; 86850; 86870; 86900; 86901; J0330; J0690; J1885; J2274; J2590; J2790